=== PATIENT | female | born 1950 | race Two or more races ===

== ENCOUNTER 2017-11-09 06:14 | Day surgery (SDC) | payer MEDICARE, OTHER ==
[~2017-11-09 06:14] MED LIST: KETOROLAC TROMETHAMINE 0.45% 4 DROP/0.4 ML DROPERETTE OD PRN
[2017-11-09] MEDS: TROPICAMIDE 1% OPH SOLN 3 ML OD PRN ×3 (06:44→07:18)
[2017-11-09] MEDS: CYCLOPENTOLATE 0.2%/PHENYLEPHRINE 1% OPH SOLN 2 ML OD PRN ×3 (06:44→07:18)
[2017-11-09] MEDS: BESIFLOXACIN HCL 0.6% OPH SUSP 5 ML BOTTLE OD PRN ×3 (06:45→08:02)
[2017-11-09] MEDS: TETRACAINE HCL 0.5% OPH SOLN 2 ML OD PRN ×3 (06:46→07:33)
[2017-11-09] MEDS ORDERED: EPINEPHRINE INJ/PF 1 MG/1 ML AMPULE ONE (07:12)
[2017-11-09] MEDS ORDERED: LIDOCAINE 1% INJ-PF (10 MG/ML) 30 ML SDV ONE (07:13)
[2017-11-09] MEDS ORDERED: CHONDR SU A NA/HYALUR INTRAOC KIT (SURGICARE) ONE (07:13)
[2017-11-09] MEDS ORDERED: MIDAZOLAM 2 MG/2 ML INJ ONE (07:19)
[2017-11-09] MEDS ORDERED: FENTANYL CITRATE INJ/PF 100 MCG/2 ML AMPUL ONE (07:19)
--- NOTE | 2017-11-09 14:14 | [facility] OPERATIVE REPORT E ---
[facility] Operative Report NAME: CHLOE DEAN AGE: 67Y DATE OF SURGERY: 11/09/2017 ROOM: PREOPERATIVE DIAGNOSES: 1. CATARACT, RIGHT EYE. 2. PUPIL MIOSIS OF THE RIGHT EYE. POSTOPERATIVE DIAGNOSES: 1. CATARACT, RIGHT EYE. 2. PUPIL MIOSIS OF THE RIGHT EYE. OPERATION: Complex cataract extraction with use of a Malyugin ring due to poor pupillary dilation. SURGEON: YUE CAIN M.D. ANESTHESIA: Topical. PROCEDURE: After obtaining appropriate consent, the patient's right eye was prepped and draped in sterile fashion as well as the surgeon in a sterile manner and cataract surgery was started. First a paracentesis blade was used to make a small side-port incision. Viscoelastic was used to inflate the anterior chamber. Next a 2.4 mm incision was made with the paracentesis blade. A continuous capsulorrhexis incision was made using a cystotome and Utrata forceps. Following this hydrodissection was carried out to make the lens fully loose and mobile and it was rotated 90 degrees. Following this, a [id number] technique was used to phacoemulsify the lens with a CDE of 13.14. The remaining cortex was removed with irrigation/aspiration. Provisc was instilled into the capsular bag to inflate the bag. A SN60WF, 19.0 diopter lens was placed. The remaining viscoelastic material was removed with irrigation/aspiration. Following this, a 10-0 nylon suture was used to close the incision and it was found to be watertight. Vigamox was instilled in the eye and a protective shield was placed over the eye. The patient returned to the postoperative recovery in stable condition. DICTATING PHYSICIAN: YUE CAIN M.D. [id number] PHY#: [id number] ID: [id number] JOB#: [id number] ACCT: [id number] cc:YUE CAIN M.D. >
--- NOTE | 2017-11-09 14:15 | [facility] DISCHARGE SUMMARY E ---
[facility] Discharge Summary NAME: CHLOE DEAN AGE: 67Y ADMITTED: 11/09/2017 DISCHARGED: 11/09/2017 DIAGNOSES: 1. CATARACT, RIGHT EYE. 2. PUPIL MIOSIS OF THE RIGHT EYE. SUMMARY: This is a 67-year-old patient who underwent complex cataract extraction of the right eye with use of a Malyugin ring due to poor pupillary dilation. Patient underwent cataract extraction with IOL because he stopped driving due to decreased vision and unable to see the television. He should be on a regular diet, no bending at the waist, and no heavy lifting. They should use the Besivance, Ilevro and Durezol at 3 p.m. and 8 p.m. and sleep with a rigid shield. I will see him for a 1 day postoperative tomorrow. DICTATING PHYSICIAN: YUE CAIN M.D. [id number] PHY#: [id number] ID: [id number] JOB#: [id number] ACCT: [id number] cc:YUE CAIN M.D. >
--- NOTE | 2017-11-09 15:49 | [facility] OPERATIVE REPORT E ---
[facility] Operative Report NAME: CHLOE DEAN AGE: 67Y DATE OF SURGERY: 11/09/2017 ROOM: ADDENDUM: Prior to making the capsulorrhexis a Malyugin ring was inserted due to poor pupillary dilation. This was removed at the end of the case. DICTATING PHYSICIAN: YUE CAIN M.D. [id number] PHY#: [id number] ID: [id number] JOB#: [id number] ACCT: [id number] cc:YUE CAIN M.D. >
== END 2017-11-09 08:53 | disposition home or self-care (01) ==
LOC: SC 06:14
PROVIDERS: ATTEND Internal Medicine
PROC: 08RJ3JZ Replacement of Right Lens with Synthetic Substitute, Percutaneous Approach (ICD-10-PCS; principal; 2017-11-09 07:30)
DX: H25.813 Combined forms of age-related cataract, bilateral (principal); H57.03 Miosis; H20.12 Chronic iridocyclitis, left eye; E11.9 Type 2 diabetes mellitus without complications; I10 Essential (primary) hypertension; F17.210 Nicotine dependence, cigarettes, uncomplicated; Z79.84 Long term (current) use of oral hypoglycemic drugs; Z79.899 Other long term (current) drug therapy; Z79.51 Long term (current) use of inhaled steroids
CPT/HCPCS: 66982; 82962; V2632; J2250; J3490 ×2; A9270; J0171; J3010; 142

== ENCOUNTER → 2018-03-07 | Outpatient (CLI) | payer MEDICARE, OTHER ==
--- NOTE | 2018-03-07 16:38 | RADIOLOGY REPORT (SQ) ---
EXAM DESCRIPTION: BONE SURVEY COMPLETE COMPLETED DATE/TIME: 03/07/2018 3:22 pm REASON FOR STUDY: D47.2 MONOCLONAL GAMMOPATHY D47.2 MONOCLONAL GAMMOPATHY COMPARISON: None. TECHNIQUE: Images of the axial and proximal appendicular skeleton are obtained, along with lateral s kull and frontal chest films. LIMITATIONS: None. FINDINGS: AP CHEST: No bony findings. Lungs are clear. LATERAL SKULL: No worrisome bone lesions. AP BOTH HUMERI: There are diffuse lytic appearing lesions throughout the left humerus. These changes appear to extend into the proximal ulna and radius on the left. TWO-VIEW LUMBAR SPINE: There is approximately 25-50% compression of the L2 vertebra without definite evidence for a pathologic compression TWO-VIEW THORACIC SPINE: There is approximately 50 to 75 percent compression of 1 of the midthoracic vertebra in anterior wedging of a 2nd midthoracic thoracic vertebra without definite evidence for a p athologic compression. AP PELVIS: No worrisome bone lesions. AP BOTH FEMURS: No worrisome bone lesions. OTHER: I cannot exclude lytic areas involving the proximal tibia bilaterally right greater than left IMPRESSION: Diffuse lytic appearing lesions throughout the left humerus and the visualized portions of the proximal ulna and radius on the left. I cannot exclude lytic areas involving the proximal tib ia bilaterally right greater than left. Multiple vertebral compressions as noted above without defin ite associated lytic areas to confirm a a pathologic compression. Clinical correlation is recommende d. Other findings as noted above TECHNICAL DOCUMENTATION: JOB ID: [id number] [employer]- All Rights Reserved Reading location - IP/workstation name: [email or web address]
== END ==
LOC: RAD 15:11
PROVIDERS: ATTEND Internal Medicine
DX: D47.2 Monoclonal gammopathy (principal)
CPT/HCPCS: 77075

== ENCOUNTER 2018-05-27 13:19 | Emergency (ER) | payer MEDICARE, OTHER ==
--- NOTE | 2018-05-27 14:16 | ER Document Report ---
ED Medical Screen (RME) - General Chief Complaint: High Blood Pressure Stated Complaint: ELEVATED BLOOD PRESSURE/ARMS NUMB Time Seen by Provider: 05/27/18 14:06 Notes: 68-year-old female patient with multiple myeloma. Home health today found that she had elevated blood pressure 190/100. She also complains about her hands and feet feeling numb for 3 days. She takes 40 mg of methylprednisolone every Wednesday and she took it this morning. She thinks her blood pressure goes up because of the high dose of methylprednisolone. I have greeted and performed a rapid initial assessment of this patient. A comprehensive ED assessment and evaluation of the patient, analysis of test results and completion of the medical decision making process will be conducted by additional ED providers. TRAVEL OUTSIDE OF THE [place] IN LAST 30 DAYS: No - Related Data Allergies/Adverse Reactions: No Known Allergies Allergy (Unverified 11/04/17 12:46) Past Medical History - Past Medical History Cardiac Medical History: Reports: Hx Hypertension - MEDICATED Denies: Hx Heart Attack Pulmonary Medical History: Denies: Hx Asthma Neurological Medical History: Denies: Hx Cerebrovascular Accident, Hx Seizures GI Medical History: Denies: Hx Hepatitis, Hx Hiatal Hernia, Hx Ulcer Infectious Medical History: Denies: Hx Hepatitis Past Surgical History: Denies: Hx Hysterectomy, Hx Mastectomy, Hx Open Heart Surgery, Hx Pacemaker Physical Exam - Vital signs Vitals: Temp Pulse Resp BP Pulse Ox 98.6 F 82 16 159/78 H 96 05/27/18 13:40 05/27/18 13:40 05/27/18 13:40 05/27/18 13:40 05/27/18 13:40 Course - Vital Signs Vital signs: Temp Pulse Resp BP Pulse Ox 98.6 F 82 16 159/78 H 96 05/27/18 13:40 05/27/18 13:40 05/27/18 13:40 05/27/18 13:40 05/27/18 13:40 Doctor's Discharge - Discharge Referrals: SHARMILA LAUREN MD [Primary Care Provider] - Follow up as needed
[2018-05-27 14:41] LABS: ABSOLUTE LYMPHOCYTES (AUTO) 0.4 10^3/uL (0.5-4.7); ABSOLUTE MONOCYTES (AUTO) 0.1 10^3/uL (0.1-1.4); BASOPHILS % (AUTO) 0.4 % (0-2); EOSINOPHILS % (AUTO) 0.4 % (0-6); HEMATOCRIT 35.8 % (36.0-47.0); HEMOGLOBIN 12.2 g/dL (12.0-15.5); LYMPHOCYTES % (AUTO) 6.8 % (13-45); MEAN CORPUSCULAR HEMOGLOBIN 28.3 pg (27.0-33.4); MEAN CORPUSCULAR HGB CONC 34.1 g/dL (32.0-36.0); MEAN CORPUSCULAR VOLUME 83 fl (80-97); MONOCYTES % (AUTO) 1.4 % (3-13); PLATELET COUNT 209 10^3/uL (150-450); RED BLOOD COUNT 4.31 10^6/uL (3.72-5.28); TOTAL CELLS COUNTED % (AUTO) 100 %; WHITE BLOOD COUNT 5.5 10^3/uL (4.0-10.5)
[2018-05-27 15:04] LABS: ALANINE AMINOTRANSFERASE 18 U/L (9-52); ALBUMIN 3.9 g/dL (3.5-5.0); ALKALINE PHOSPHATASE 97 U/L (38-126); ANION GAP 9 (5-19); ASPARTATE AMINO TRANSFERASE 12 U/L (14-36); BILIRUBIN,DIRECT 0.4 mg/dL (0.0-0.4); BILIRUBIN,TOTAL 0.7 mg/dL (0.2-1.3); BLOOD UREA NITROGEN 10 mg/dL (7-20); CALCIUM 8.9 mg/dL (8.4-10.2); CARBON DIOXIDE 24 mmol/L (22-30); CHLORIDE 101 mmol/L (98-107); CREATINE KINASE 31 U/L (30-135); GLUCOSE 182 mg/dL (75-110); POTASSIUM 4.5 mmol/L (3.6-5.0); SODIUM 133.9 mmol/L (137-145); TOTAL PROTEIN 6.5 g/dL (6.3-8.2)
[2018-05-27 15:27] LABS: APPEARANCE,URINE CLEAR; BILIRUBIN,URINE NEGATIVE (NEGATIVE); COLOR,URINE YELLOW; GLUCOSE, URINE 50 mg/dL (NEGATIVE); KETONES,URINE NEGATIVE (NEGATIVE); LEUKOCYTE ESTERASE,URINE NEGATIVE (NEGATIVE); NITRITE,URINE NEGATIVE (NEGATIVE); PROTEIN,URINE 100 mg/dL (NEGATIVE); URINE SPECIFIC GRAVITY 1.013; UROBILINOGEN,URINE NEGATIVE mg/dL (<2.0)
--- NOTE | 2018-05-27 15:32 | ER Document Report ---
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 Patient has been on steroids for the past 2 months. She states for the past several days she has been having tingling and numbness in the hands and feet in a stocking glove distribution. Patient's home health nurse came in and noticed that the patient's blood pressure was elevated this morning (190/100) and she was referred to the emergency room. Review of systems: Patient denies any neck pain, back pain. She denies any radicular type symptoms. Medicines: Janumet twice daily Lisinopril 40 daily Aspirin 81 mg daily Lipitor 40 mg daily Carvedilol 25 mg twice daily Advair, albuterol and iron Primary CARE doctor: Dr. Frankel. Oncologist: Dr. Дмитрий villarreal Edges: None TRAVEL OUTSIDE OF THE [place] IN LAST 30 DAYS: No - HPI Onset: Last week Onset/Duration: Gradual Quality of pain: No pain Severity: None Pain Level: Denies Associated symptoms: denies: Chest pain, Shortness of breath Exacerbated by: Denies Relieved by: Denies Similar symptoms previously: Yes Recently seen / treated by doctor: Yes - Related Data Allergies/Adverse Reactions: No Known Allergies Allergy (Unverified 11/04/17 12:46) Past Medical History - General Information source: Patient - Social History Smoking Status: Current Every Day Smoker Cigarette use (# per day): Yes - 1 pack/day Chew tobacco use (# tins/day): No Frequency of alcohol use: None Drug Abuse: None Lives with: Family Family History: None Patient has suicidal ideation: No Patient has homicidal ideation: No - Past Medical History Cardiac Medical History: Reports: Hx Hypercholesterolemia, Hx Hypertension - MEDICATED Denies: Hx Heart Attack Pulmonary Medical History: Reports: Hx COPD Denies: Hx Asthma Neurological Medical History: Denies: Hx Cerebrovascular Accident, Hx Seizures Endocrine Medical History: Reports: Hx Diabetes Mellitus Type 2 Renal/ Medical History: Denies: Hx Peritoneal Dialysis GI Medical History: Denies: Hx Hepatitis, Hx Hiatal Hernia, Hx Ulcer Infectious Medical History: Denies: Hx Hepatitis Past Surgical History: Reports: Other - Eye surgery. Denies: Hx Hysterectomy, Hx Mastectomy, Hx Open Heart Surgery, Hx Pacemaker Review of Systems - Review of Systems Constitutional: denies: Chills, Fever EENT: No symptoms reported Cardiovascular: No symptoms reported Respiratory: No symptoms reported Gastrointestinal: No symptoms reported Genitourinary: No symptoms reported Female Genitourinary: No symptoms reported Musculoskeletal: See HPI Skin: No symptoms reported Hematologic/Lymphatic: No symptoms reported Neurological/Psychological: See HPI Physical Exam - Vital signs Vitals: Temp Pulse Resp BP Pulse Ox 98.6 F 82 16 159/78 H 96 05/27/18 13:40 05/27/18 13:40 05/27/18 13:40 05/27/18 13:40 05/27/18 13:40 Notes: Physical exam: GENERAL: She is alert and oriented x3, her blood pressure is 137/67 at the time of my exam, her pulse is 75, O2 sat 99% on room air. She does have an intermittent nonproductive cough which he says is chronic for her HEAD: Atraumatic, normocephalic. EYES: Pupils equal round and reactive to light, extraocular movements intact, sclera anicteric, conjunctiva are normal. ENT: TMs normal, nares patent, oropharynx clear without exudates. Moist mucous membranes. NECK: Normal range of motion, supple without obvious mass or JVD. LUNGS: Scattered wheezing which clears HEART: Regular rate and rhythm without murmurs, rubs or gallops. ABDOMEN: Soft, normoactive bowel sounds. No tenderness to palpation. No guarding, no rebound. No masses appreciated. EXTREMITIES: Normal range of motion, no pitting or edema. No clubbing or cyanosis. NEUROLOGICAL: Cranial nerves II through XII grossly intact. Normal speech, moving all extremities. Motor 5/5. Patient does have subjective tingling in the stocking glove distribution bilaterally upper and lower. There is no focal weakness. PSYCH: Normal mood, normal affect. SKIN: Warm, Dry, normal turgor, no rashes or lesions noted. Course - Re-evaluation Re-evalutation: 05/27/18 18:37 Did discuss the case with Dr. Pruitt who did recommend getting a T and L CT to rule out any obvious lesions. None were seen. Patient was given some IV fluids. The plan will be to decrease the weekly steroids (Decadron) in half. Dr. Baez recommended the patient call the clinic on Wednesday to be seen next week. - Vital Signs Vital signs: Temp Pulse Resp BP Pulse Ox 97.4 F 71 16 146/76 H 98 05/27/18 19:01 05/27/18 19:01 05/27/18 19:01 05/27/18 19:01 05/27/18 19:01 - Laboratory Result Diagrams: 05/27/18 13:22 05/27/18 13:22 Laboratory results interpreted by me: 05/27/18 05/27/18 05/27/18 13:22 13:22 14:40 Hct 35.8 L RDW 18.0 H Seg Neutrophils % 91.0 H Lymphocytes % 6.8 L Monocytes % 1.4 L Absolute Lymphocytes 0.4 L Sodium 133.9 L Glucose 182 H POC Glucose AST 12 L Urine Protein 100 H Urine Glucose (UA) 50 H 05/27/18 14:49 Hct RDW Seg Neutrophils % Lymphocytes % Monocytes % Absolute Lymphocytes Sodium Glucose POC Glucose 204 H AST Urine Protein Urine Glucose (UA) Discharge - Discharge Clinical Impression: Peripheral neuropathy Disposition: HOME, SELF-CARE Instructions: Neuropathy ([facility]) Additional Instructions: As we discussed, your kidney function tests and electrolytes look quite good. Your urine test was clean. Your chest x-ray was clear. CT of the back look quite good. There were some chronic changes and mild compression (which was old ) of L2. I did discuss the results with Dr. Baez. We do want you to decrease the weekly steroids in half (to 20 mg of Decadron). Call Dr. Baez's office on Wednesday to be seen next week. Referrals: SHARMILA BAEZ MD [ACTIVE STAFF] - 05/30/18
--- NOTE | 2018-05-27 16:25 | RADIOLOGY REPORT (SQ) ---
EXAM DESCRIPTION: CHEST 2 VIEWS COMPLETED DATE/TIME: 05/27/2018 4:06 pm REASON FOR STUDY: cough COMPARISON: Skeletal survey 03/07/2018 AP chest 06/20/2010, 06/19/2010 EXAM PARAMETERS: NUMBER OF VIEWS: two views TECHNIQUE: Digital Frontal and Lateral radiographic views of the chest acquired. RADIATION DOSE: NA LIMITATIONS: none FINDINGS: LUNGS AND PLEURA: No opacities, masses or pneumothorax. No pleural effusion. MEDIASTINUM AND HILAR STRUCTURES: No masses or contour abnormalities. HEART AND VASCULAR STRUCTURES: Heart normal size. No evidence for failure. BONES: Osteoporotic. Stable 50% compression deformities in the upper thoracic spine. Advanced degen erative changes left shoulder. Old anterior left 5th rib fracture, old anterior right 5th rib fractu re HARDWARE: None in the chest. OTHER: No other significant finding. IMPRESSION: No acute findings TECHNICAL DOCUMENTATION: JOB ID: [id number] [employer]- All Rights Reserved Reading location - IP/workstation name: [email or web address]
[2018-05-27] MEDS ORDERED: NORMAL SALINE 500 ML IV ONE (17:10)
--- NOTE | 2018-05-27 17:38 | RADIOLOGY REPORT (SQ) ---
EXAM DESCRIPTION: CT LUMBAR SPINE WITHOUT COMPLETED DATE/TIME: 05/27/2018 5:25 pm REASON FOR STUDY: back pain, multiple myeloma COMPARISON: Bone survey 03/07/2018 TECHNIQUE: Axial images acquired through the lumbar spine without intravenous contrast. Images revi ewed with lung, soft tissue and bone windows. Reconstructed coronal and sagittal MPR images reviewed . All images stored on PACS. All CT scanners at this facility use dose modulation, iterative reconstruction, and/or weight based d osing when appropriate to reduce radiation dose to as low as reasonably achievable (ALARA). [facility]: Dose Right [facility]: CareDose [facility]: Dose Right [facility]: Teradose 4D [facility]: [employer] RADIATION DOSE: mGy. LIMITATIONS: None. FINDINGS: SEGMENTATION: Normal. No transitional anatomy. ALIGNMENT: Normal. VERTEBRAL BODIES: Old compression changes are present at L2. Bridging osteophytes are present in the lower thoracic and upper lumbar spine. DISCS: No significant protrusions. Study limited by lack of intrathecal contrast. PEDICLES, TRANSVERSE PROCESSES: No fractures. No dislocation. No acute findings. FACETS, POSTERIOR ELEMENTS: No fractures. No dislocation. No spinal stenosis. HARDWARE: None in the spine. VISUALIZED RIBS: No fractures. SOFT TISSUES: No significant or acute finding in adjacent soft tissues. OTHER: No other significant finding. IMPRESSION: Lumbar spondylosis. Old compression changes at L2. No acute findings. TECHNICAL DOCUMENTATION: JOB ID: [id number] Quality ID # [id number]: Final reports with documentation of one or more dose reduction techniques (e.g., Au tomated exposure control, adjustment of the mA and/or kV according to patient size, use of iterative reconstruction technique) 2010 [employer]- All Rights Reserved Reading location - IP/workstation name: [email or web address]
--- NOTE | 2018-05-27 17:47 | RADIOLOGY REPORT (SQ) ---
EXAM DESCRIPTION: CT THORACIC SPINE WITHOUT COMPLETED DATE/TIME: 05/27/2018 5:25 pm REASON FOR STUDY: back pain, multiple myeloma COMPARISON: None. TECHNIQUE: Axial images acquired through the thoracic spine without intravenous contrast. Images re viewed with lung, soft tissue and bone windows. Reconstructed coronal and sagittal MPR images review ed. Images stored on PACS. All CT scanners at this facility use dose modulation, iterative reconstruction, and/or weight based d osing when appropriate to reduce radiation dose to as low as reasonably achievable (ALARA). [facility]: Dose Right [facility]: CareDose [facility]: Dose Right [facility]: Teradose 4D [facility]: Smart [employer] RADIATION DOSE: CT Rad equipment meets quality standard of care and radiation dose reduction techniq ues were employed. CTDIvol: 34.5 mGy. DLP: 981 mGy-cm. mGy. LIMITATIONS: None. FINDINGS: VISUALIZED LUNGS: No acute opacities. No pneumothorax. SOFT TISSUES: No soft tissue swelling. No masses. VERTEBRAL BODIES: Compression changes are present in the upper to mid thoracic spine. There is somew hat heterogeneous mineralization all the bone suggestive of osteopenia. No definite discrete lytic l esions are appreciated. DISCS: No significant disc space narrowing. ALIGNMENT: Mild dextroscoliosis. TRANSVERSE PROCESSES, POSTERIOR ELEMENTS: No fractures. No dislocation. No acute findings. HARDWARE: None in the spine. VISUALIZED RIBS: No fractures. OTHER: No other significant finding. IMPRESSION: Heterogeneous mineralization of the vertebrae. No definite lytic lesions are seen, but small lesions cannot entirely be excluded. Compression changes in the upper and midthoracic spine. COMMENT: The same considerations apply to the lumbar spine. There is slightly heterogeneous mineral ization. Small myelomatous lesions cannot entirely be excluded. TECHNICAL DOCUMENTATION: JOB ID: [id number] Quality ID # [id number]: Final reports with documentation of one or more dose reduction techniques (e.g., Au tomated exposure control, adjustment of the mA and/or kV according to patient size, use of iterative reconstruction technique) 2010 [employer]- All Rights Reserved Reading location - IP/workstation name: [email or web address]
[2018-05-27 19:02] VITALS: BP 146/76
== END 2018-05-27 18:55 | disposition home or self-care (01) ==
LOC: ER 13:19
DX: E11.42 Type 2 diabetes mellitus with diabetic polyneuropathy (principal); R20.2 Paresthesia of skin; R20.0 Anesthesia of skin; R05 Cough; E78.00 Pure hypercholesterolemia, unspecified; I10 Essential (primary) hypertension; J44.9 Chronic obstructive pulmonary disease, unspecified; F17.210 Nicotine dependence, cigarettes, uncomplicated; Z79.84 Long term (current) use of oral hypoglycemic drugs; Z79.899 Other long term (current) drug therapy; Z79.82 Long term (current) use of aspirin; Z79.51 Long term (current) use of inhaled steroids
CPT/HCPCS: 99284; 96360; 36415; 87040; 82962; 82550; 85025; 80053; 81001; 71046; 72128; 72131; J7040

== ENCOUNTER 2018-10-07 13:12 | Outpatient (CLI) | payer MEDICARE, OTHER ==
[~2018-10-07 13:12] MED LIST changes: +CALCIUM GLUCONATE 2,000 MG in DEXTROSE 5%-WATER 100 ML IV PRN; -KETOROLAC TROMETHAMINE 0.45% 4 DROP/0.4 ML DROPERETTE OD PRN; +NORMAL SALINE 250 ML IV PRN
[2018-10-07 13:40] VITALS: BP 141/61
== END 2018-10-07 16:28 | disposition home or self-care (01) ==
LOC: II 13:12 → 5TH 13:24 → II 16:28
PROVIDERS: ATTEND Internal Medicine Hematology & Oncology
PROC: 3E033GC Introduction of Other Therapeutic Substance into Peripheral Vein, Percutaneous Approach (ICD-10-PCS; principal; 2018-10-07)
DX: E83.51 Hypocalcemia (principal)
CPT/HCPCS: 96367; J0610; 96365

== ENCOUNTER 2020-06-03 18:47 | Inpatient (IN) | payer MEDICARE ==
--- NOTE | 2020-06-03 19:48 | ER Document Report ---
ED Medical Screen (RME) - General Chief Complaint: Weakness Stated Complaint: LEG WEAKNESS Time Seen by Provider: 06/03/20 19:46 Mode of Arrival: Wheelchair Information source: Patient Notes: HPI; 70-year-old female presents to the emergency room complaining of general weakness with frequent falls over the past 2 days. States her son has had to lift her up multiple times today. States she is had a decreased appetite plus her house is hot because her air conditioning went out 2 days ago. She denies any head trauma head injury. Denies any use of blood thinners. She denies any nausea, vomiting, no diarrhea. PE: Alert and oriented x3. Mild distress noted. Lungs: Clear to auscultation without rales, rhonchi, wheezes. Heart: Regular rate rhythm without murmurs, rubs, gallops. I have greeted and performed a rapid initial assessment of this patient. A comprehensive ED assessment and evaluation of the patient, analysis of test results and completion of the medical decision making process will be conducted by additional ED providers. I have specifically instructed the patient or family members with the patient to immediately return to any nursing staff should anything change in the patient's condition or with their chief complaint. TRAVEL OUTSIDE OF THE [place] IN LAST 30 DAYS: No - Related Data Allergies/Adverse Reactions: No Known Allergies Allergy (Verified 06/03/20 19:40) Past Medical History - Past Medical History Cardiac Medical History: Reports: Hx Hypercholesterolemia, Hx Hypertension - MEDICATED Denies: Hx Heart Attack Pulmonary Medical History: Reports: Hx COPD Denies: Hx Asthma Neurological Medical History: Denies: Hx Cerebrovascular Accident, Hx Seizures Endocrine Medical History: Reports: Hx Diabetes Mellitus Type 2 Renal/ Medical History: Denies: Hx Peritoneal Dialysis GI Medical History: Denies: Hx Hepatitis, Hx Hiatal Hernia, Hx Ulcer Infectious Medical History: Denies: Hx Hepatitis Past Surgical History: Reports: Other - Eye surgery. Denies: Hx Hysterectomy, Hx Mastectomy, Hx Open Heart Surgery, Hx Pacemaker Physical Exam - Vital signs Vitals: Temp Pulse Resp BP Pulse Ox 98.5 F 87 20 153/77 H 94 06/03/20 19:19 06/03/20 19:19 06/03/20 19:19 06/03/20 19:19 06/03/20 19:19 Course - Vital Signs Vital signs: Temp Pulse Resp BP Pulse Ox 98.5 F 87 20 153/77 H 94 06/03/20 19:19 06/03/20 19:19 06/03/20 19:19 06/03/20 19:19 06/03/20 19:19
[2020-06-03 20:50] LABS: APPEARANCE,URINE SLIGHTLY-CLOUDY; BILIRUBIN,URINE NEGATIVE (NEGATIVE); COLOR,URINE YELLOW; GLUCOSE, URINE >=500 mg/dL (NEGATIVE); KETONES,URINE TRACE mg/dL (NEGATIVE); LEUKOCYTE ESTERASE,URINE NEGATIVE (NEGATIVE); NITRITE,URINE NEGATIVE (NEGATIVE); PROTEIN,URINE >=500 mg/dL (NEGATIVE); UROBILINOGEN,URINE NEGATIVE mg/dL (<2.0)
[2020-06-03 20:57] LABS: ABSOLUTE EOSINOPHILS # (AUTO) 0.1 10^3/uL (0.0-0.6); ABSOLUTE LYMPHOCYTES (AUTO) 1.5 10^3/uL (0.5-4.7); ABSOLUTE MONOCYTES (AUTO) 0.5 10^3/uL (0.1-1.4); ABSOLUTE NEUT (AUTO) 6.6 10^3/uL (1.7-8.2); BASOPHILS % (AUTO) 0.3 % (0-2); EOSINOPHILS % (AUTO) 1.5 % (0-6); HEMATOCRIT 44.1 % (36.0-47.0); HEMOGLOBIN 15.3 g/dL (12.0-15.5); LYMPHOCYTES % (AUTO) 17.3 % (13-45); MEAN CORPUSCULAR HEMOGLOBIN 31.1 pg (27.0-33.4); MEAN CORPUSCULAR HGB CONC 34.8 g/dL (32.0-36.0); MEAN CORPUSCULAR VOLUME 89 fl (80-97); MONOCYTES % (AUTO) 5.9 % (3-13); PLATELET COUNT 227 10^3/uL (150-450); RED BLOOD COUNT 4.93 10^6/uL (3.72-5.28); RED CELL DISTRIBUTION WIDTH 13.2 % (11.5-14.0); TOTAL CELLS COUNTED % (AUTO) 100 %; WHITE BLOOD COUNT 8.7 10^3/uL (4.0-10.5)
[2020-06-03 21:00] LABS: ALBUMIN 4.5 g/dL (3.5-5.0); ALKALINE PHOSPHATASE 121 U/L (38-126); ANION GAP 15 (5-19); ASPARTATE AMINO TRANSFERASE 20 U/L (14-36); BILIRUBIN,DIRECT 0.3 mg/dL (0.0-0.4); BILIRUBIN,TOTAL 1.1 mg/dL (0.2-1.3); BLOOD UREA NITROGEN 13 mg/dL (7-20); CALCIUM 9.7 mg/dL (8.4-10.2); CARBON DIOXIDE 20 mmol/L (22-30); CHLORIDE 99 mmol/L (98-107); GLUCOSE 271 mg/dL (75-110); POTASSIUM 4.1 mmol/L (3.6-5.0); TOTAL PROTEIN 7.7 g/dL (6.3-8.2)
[2020-06-04] MEDS ORDERED: NORMAL SALINE 1000 ML 1,000 ML IV ONE (01:24)
[2020-06-04] MEDS ORDERED: IPRATROPIUM/ALBUTEROL 0.5-2.5 MG/3 ML AMPUL NEB ONE (01:35)
--- NOTE | 2020-06-04 01:35 | ER Document Report ---
ED General - General Chief Complaint: General Weakness Stated Complaint: LEG WEAKNESS Time Seen by Provider: 06/03/20 19:46 Mode of Arrival: Wheelchair Notes: Patient is a 70 year old female that comes to the emergency department for chief complaint of generalized weakness. Patient states that since yesterday midday s he has felt weaker than usual and as result she has fallen 3 times. She denies any heavy falls, head injury, or areas of pain after falling. She states that the weakness has continued since yesterday and has not improved or changed. When asked where her weakness is mainly she states "my legs". She denies headache, chest pain, dizziness, nausea, vomiting. She states she feels dehydrated. She has a past medical history of multiple myeloma on Revlimid (follows with Dr. Baez), hypertension, hyperlipidemia, COPD, current smoking. Granddaughter at bedside. TRAVEL OUTSIDE OF THE [place] IN LAST 30 DAYS: No - Related Data Allergies/Adverse Reactions: No Known Allergies Allergy (Verified 06/03/20 19:40) Past Medical History - General Information source: Patient - Social History Smoking Status: Current Every Day Smoker Frequency of alcohol use: None Drug Abuse: None Lives with: Family Family History: None - Past Medical History Cardiac Medical History: Reports: Hx Hypercholesterolemia, Hx Hypertension - MEDICATED Denies: Hx Heart Attack Pulmonary Medical History: Reports: Hx COPD Denies: Hx Asthma Neurological Medical History: Denies: Hx Cerebrovascular Accident, Hx Seizures Endocrine Medical History: Reports: Hx Diabetes Mellitus Type 2 Renal/ Medical History: Denies: Hx Peritoneal Dialysis GI Medical History: Denies: Hx Hepatitis, Hx Hiatal Hernia, Hx Ulcer Infectious Medical History: Denies: Hx Hepatitis Past Surgical History: Reports: Other - Eye surgery. Denies: Hx Hysterectomy, Hx Mastectomy, Hx Open Heart Surgery, Hx Pacemaker Review of Systems - Review of Systems Constitutional: No symptoms reported EENT: No symptoms reported Cardiovascular: No symptoms reported Respiratory: No symptoms reported Gastrointestinal: No symptoms reported Genitourinary: No symptoms reported Female Genitourinary: No symptoms reported Musculoskeletal: See HPI Skin: No symptoms reported Hematologic/Lymphatic: No symptoms reported Neurological/Psychological: See HPI Physical Exam - Vital signs Vitals: Temp Pulse Resp BP Pulse Ox 98.5 F 87 20 153/77 H 94 06/03/20 19:19 06/03/20 19:19 06/03/20 19:19 06/03/20 19:19 06/03/20 19:19 - Notes Notes: GENERAL: Alert, interacts well. No acute distress. HEAD: Normocephalic, atraumatic. EYES: Pupils equal, round, and reactive to light. Extraocular movements intact. ENT: Oral mucosa moist, tongue midline. Oropharynx unremarkable. Airway patent. NECK: Full range of motion. Supple. Trachea midline. No lymphadenopathy. LUNGS: Clear to auscultation bilaterally, no wheezes, rales, or rhonchi. No r espiratory distress. Non-tender chest wall. HEART: Regular rate and rhythm. No murmur ABDOMEN: Soft, non-tender. Non-distended. Bowel sounds present in all 4 quadrants. GENITOURINARY: Deferred EXTREMITIES: No signs of trauma, no tenderness noted. No edema, normal radial and dorsalis pedis pulses bilaterally. No cyanosis. BACK: no cervical, thoracic, lumbar midline tenderness. No saddle anesthesia, normal distal neurovascular exam. NEUROLOGICAL: Alert and oriented x3. Normal speech. Normal zzyzej-by-slqu testing, normal Romberg. Cranial nerves II through XII grossly intact. There is marked decrease in strength in the left leg and patient is unable to lift his leg in any meaningful fashion against gravity. Extremities otherwise unremarkable. SKIN: Warm, dry, normal turgor. No rashes or lesions noted. Course - Re-evaluation Re-evalutation: Patient's physical exam is concerning for CVA with marked left leg weakness, possible ARIANNA distribution. Remaining evaluation is unremarkable. Patient has had several falls, most likely from this weakness based on her evaluation. Vital signs show mild hypertension, this will be allowed for permissive hypertension in the setting of likely CVA. CBC nonspecific, chemistry shows hyperglycemia without acidosis, urinalysis shows elevated specific gravity. Chest x-ray and CAT scan without acute findings. EKG nonspecific. Giving aspirin, patient has been given IV fluids fo r dehydration as well. I discussed with daughter and patient, recommendation is admission for suspected CVA, patient also might need rehab because she has difficulty with ambulation. I discussed with Dr. Coelho, patient excepted to IMCU full admission. - Vital Signs Vital signs: Temp Pulse Resp BP Pulse Ox 98.5 F 87 20 153/77 H 94 06/03/20 19:19 06/03/20 19:19 06/03/20 19:19 06/03/20 19:19 06/03/20 19:19 - Laboratory Result Diagrams: 06/03/20 20:15 06/03/20 20:15 Laboratory results interpreted by me: 06/03/20 06/03/20 20:15 20:15 Sodium 134.4 L Carbon Dioxide 20 L Glucose 271 H Urine Protein >=500 H Urine Glucose (UA) >=500 H Urine Ketones TRACE H - EKG Interpretation by Me Additional EKG results interpreted by me: EKG shows sinus rhythm at a rate of 83, normal axis, no T wave inversions or ST segment changes in consecutive leads. QTc is borderline prolonged at 489. Discharge - Discharge Clinical Impression: Left leg weakness Fall Qualifiers: Encounter type: initial encounter Qualified Code(s): W19.XXXA - Unspecified fall, initial encounter Condition: Stable Disposition: ADMITTED INPATIENT Admitting Provider: Laquita (Hospitalist) Unit Admitted: [facility]
--- NOTE | 2020-06-04 02:00 | RADIOLOGY REPORT (SQ) ---
EXAM DESCRIPTION: X-ray, single view of the chest CLINICAL HISTORY: 70 years Female, left leg weakness COMPARISON: Two views of the chest May 27, 2018 FINDINGS: Lungs: Lungs are clear. No pneumonia or edema. No pneumothorax or pleural effusion. Mediastinum: Cardiac and mediastinal silhouette are unchanged Bones: Osseous structures are not well seen secondary to underpenetration. There may be healed left-sided rib fractures. IMPRESSION: No acute process. No pneumonia or edema.
[2020-06-04 02:53] LABS: INTERNATIONAL RATION (INR) 0.96
[2020-06-04 02:54] LABS: PARTIAL THROMBOPLASTIN TIME 27.1 SEC (23.5-35.8)
--- NOTE | 2020-06-04 03:11 | RADIOLOGY REPORT (SQ) ---
CLINICAL HISTORY: left leg weakness COMPARISON: None. TECHNIQUE: CT HEAD WITHOUT IV CONTRAST on 06/04/2020 1:23 AM CDT This exam was performed according to our departmental dose-optimization program, which includes automated exposure control, adjustment of the mA and/or kV according to patient size and/or use of iterative reconstruction technique. FINDINGS: There is no acute hemorrhage, mass effect or midline shift. Zhang-white differentiation is preserved. There is no hydrocephalus. There is no significant volume loss for age. The calvarium is intact. Left globe is hyperdense. The paranasal sinuses are clear. Mastoid air cells are clear. IMPRESSION: No acute intracranial findings.
[2020-06-04] MEDS ORDERED: ASPIRIN 325 MG TABLET PO ONE (03:25)
[2020-06-04] MEDS ORDERED: ACETAMINOPHEN 325 MG TABLET PO PRN (04:15)
[2020-06-04] MEDS ORDERED: ONDANSETRON HCL INJ/PF 4 MG/2 ML SDV IV PRN (04:15)
[2020-06-04] MEDS ORDERED: DEXTROSE 50%-WATER 25 GM/50 ML DISP.SYRIN IV PRN ×2 (04:18)
[2020-06-04] MEDS ORDERED: DEXTROSE 40% GEL 15 GM TUBE PO PRN ×2 (04:18)
[2020-06-04] MEDS ORDERED: GLUCAGON,HUMAN RECOMB 1 MG INJ IM PRN (04:18)
[2020-06-04] MEDS ORDERED: NICOTINE 14 MG/24 HR PATCH.TD24 TD PRN (04:24)
--- NOTE | 2020-06-04 04:47 | PDOC H&P ---
History of Present Illness Admission Date/PCP: 06/04/20 03:49 Patient complains of: Left-sided weakness, ambulatory dysfunction History of Present Illness: CHLOE DEAN is a 70 year old female with history of type 2 diabetes mellitus with retinopathy, multiple myeloma, hypertension, COPD, presents to the hospital for evaluation of left-sided weakness which began 2 days ago. It involve the leg and her arm. Since then, she has been having difficulty getting around to the point where she had a fall. Ambulation has been significantly impacted and her daughter urged her to come into the hospital today. She endorses numbness which is improving in her left arm. Denies any tingling sensation. Denies any slurred speech. Denies any dysphagia. Follows with Dr. Vyas regarding her multiple myeloma and is on Revlimid. Patient denies any prior history of stroke or TIAs. She denies any heart disease. Past Medical History Cardiac Medical History: Reports: Hyperlipidema, Hypertension - MEDICATED Denies: Myocardial Infarction Pulmonary Medical History: Reports: Chronic Obstructive Pulmonary Disease (COPD) Denies: Asthma Neurological Medical History: Denies: Seizures Endocrine Medical History: Reports: Diabetes Mellitus Type 2 GI Medical History: Denies: Hepatitis, Hiatal Hernia Hematology: Denies: Anemia, Sickle Cell Disease Past Surgical History Past Surgical History: Reports: Other - Eye surgery Denies: Amputation, Hysterectomy, Mastectomy, Pacemaker Social History Smoking Status: Current Every Day Smoker Frequency of Alcohol Use: None Hx Recreational Drug Use: No - Advance Directive Resuscitation Status: Full Code Family History Family History: DM, Hypertension Parental Family History Reviewed: Yes Children Family History Reviewed: NA Sibling(s) Family History Reviewed.: Yes Medication/Allergy Home Medications: Albuterol Sulfate [Proventil Hfa] 1 puff IH DAILY 11/04/17 Aspirin [Aspirin EC] 81 mg PO DAILY 11/04/17 Atorvastatin Calcium [Lipitor 40 mg Tablet] 40 mg PO QHS 11/04/17 Besifloxacin HCl [Besivance 0.6% Oph Susp 5 ml] 1 drop OP ASDIR 11/04/17 Difluprednate [Durezol] 1 drop OP ASDIR 11/04/17 Fluticasone/Salmeterol [Advair 100-50 Diskus 28 Dose] 2 inh IH DAILY PRN 11/04/17 Lisinopril 40 mg PO DAILY 11/04/17 Nepafenac [Ilevro] 1 drop OP ASDIR 11/04/17 Sitagliptin Phos/Metformin HCl [Janumet 50-1,000 Mg Tablet] 1 each PO BID 11/04/17 Allergies/Adverse Reactions: No Known Allergies Allergy (Verified 06/03/20 19:40) Review of Systems Constitutional: ABSENT: chills, fever(s) Eyes: PRESENT: visual disturbances - 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 ABSENT: abnormal speech, confusion, dizziness, syncope, tingling, tremor(s), vertigo Psychiatric: PRESENT: depression - Since losing her 2 months ago Endocrine: ABSENT: polyuria Allergic/Immunologic: ABSENT: seasonal rhinorrhea Physical Exam Vital Signs: Temp Pulse Resp BP Pulse Ox 98.5 F 87 20 153/77 H 94 06/03/20 19:19 06/03/20 19:19 06/03/20 19:19 06/03/20 19:19 06/03/20 19:19 Intake & Output 06/02/20 06/03/20 06/04/20 06:59 06:59 06:59 Weight 74.4 kg General appearance: PRESENT: no acute distress, cooperative Eye exam: PRESENT: conjunctival injection, EOMI, PERRLA. ABSENT: scleral icterus Neck exam: ABSENT: JVD Respiratory exam: PRESENT: clear to auscultation mary jo, unlabored. ABSENT: accessory muscle use, tachypnea, wheezes Cardiovascular exam: PRESENT: RRR, +S1, +S2. ABSENT: tachycardia GI/Abdominal exam: PRESENT: soft. ABSENT: rebound, rigid, tenderness Extremities exam: ABSENT: pedal edema Musculoskeletal exam: PRESENT: full ROM. ABSENT: deformity Neurological exam: PRESENT: alert, awake, oriented to person, oriented to place, oriented to time, oriented to situation, CN II-XII grossly intact - Except mild facial pulse, motor sensory deficit - 3/5 in LLE, 4/5LUE, 5/5 in RLE & RUE. ABSENT: ataxia, aphasic Psychiatric exam: ABSENT: agitated, anxious Focused psych exam: ABSENT: pressured speech Skin exam: ABSENT: jaundice Results Laboratory Results: 06/03/20 20:15 06/03/20 20:15 06/03/20 06/03/20 06/03/20 20:15 20:15 20:15 WBC 8.7 RBC 4.93 Hgb 15.3 Hct 44.1 MCV 89 MCH 31.1 MCHC 34.8 RDW 13.2 Plt Count 227 Seg Neutrophils % 75.0 Sodium 134.4 L Potassium 4.1 Chloride 99 Carbon Dioxide 20 L Anion Gap 15 BUN 13 Creatinine 0.80 Est GFR ( Amer) > 60 Glucose 271 H Calcium 9.7 Total Bilirubin 1.1 AST 20 Alkaline Phosphatase 121 Total Protein 7.7 Albumin 4.5 Urine Color YELLOW Urine Appearance SLIGHTLY-CLOUDY Urine pH 5.0 Ur Specific [place] 1.020 Urine Protein >=500 H Urine Glucose (UA) >=500 H Urine Ketones TRACE H Urine Blood NEGATIVE Urine Nitrite NEGATIVE Ur Leukocyte Esterase NEGATIVE Urine WBC (Auto) 3 Urine RBC (Auto) 1 06/03/20 20:15 Troponin I < 0.012 Impressions: Chest X-Ray 06/04/20 01:23 IMPRESSION: No acute process. No pneumonia or edema. Head CT 06/04/20 01:23 IMPRESSION: No acute intracranial findings. Assessment and Plan - Diagnosis (1) Acute CVA (cerebrovascular accident) Is this a current diagnosis for this admission?: Yes Plan: Suspected acute CVA which likely occurred 2 days ago at the time when patient started experiencing left-sided weakness. Brain CT negative for hemorrhagic NIHSS score is 5 Neuro checks Check MRI of the brain, carotid Doppler, echo Cardiac monitoring Daily aspirin, Plavix for 21 days, high-dose atorvastatin Check lipid panel and A1c in the morning Swallow screen PT/OT/social work consultation May need placement of acute rehab given degree of her ambulatory dysfunction Patient educator DVT/GI prophylaxis (2) Multiple myeloma Qualifiers: Multiple myeloma remission status: unspecified Qualified Code(s): C90.00 - Multiple myeloma not having achieved remission Is this a current diagnosis for this admission?: Yes Plan: Outpatient follow-up with hematology/oncology Dr. Lebron. Takes Revlimid (3) Diabetes Qualifiers: Diabetes mellitus type: type 2 Diabetes mellitus [facility] insulin use: without [facility] use Diabetes mellitus complication status: with ophthalmic complications Diabetes mellitus complication detail: with diabetic retinopathy Diabetic retinopathy severity: with unspecified retinopathy severity Diabetes mellitus macular edema: macular edema presence unspecified Laterality: left Qualified Code(s): E11.319 - Type 2 diabetes mellitus with unspecified diabetic retinopathy without macular edema Is this a current diagnosis for this admission?: Yes Plan: On oral anti-glycemic. Sliding scale insulin, Accu-Cheks, check hemoglobin A1c (4) Hypertension Qualifiers: Hypertension type: essential hypertension Qualified Code(s): I10 - Essential (primary) hypertension Is this a current diagnosis for this admission?: Yes Plan: Resume antihypertensives once medication reconciliation is confirmed. If patient is not already on one, patient will benefit strongly from ACEI/ARB given 4+ proteinuria 2/2 diabetes (5) COPD (chronic obstructive pulmonary disease) Qualifiers: COPD type: unspecified COPD Qualified Code(s): J44.9 - Chronic obstructive pulmonary disease, unspecified Is this a current diagnosis for this admission?: Yes Plan: Albuterol as needed. Not in acute exacerbation. (6) Tobacco abuse Is this a current diagnosis for this admission?: Yes Plan: Counseled on smoking cessation. - Time Time Spent with patient: 35 or more minutes Anticipated Discharge Disposition: Acute rehab Anticipated Discharge Timeframe: within 48 hours
[2020-06-04 06:37] LABS: ANION GAP 12 (5-19); BLOOD UREA NITROGEN 12 mg/dL (7-20); CARBON DIOXIDE 20 mmol/L (22-30); CHLORIDE 104 mmol/L (98-107); CHOLESTEROL 241.18 mg/dL (0-200); GLUCOSE 203 mg/dL (75-110); POTASSIUM 3.6 mmol/L (3.6-5.0); TRIGLYCERIDES 223 mg/dL (<150)
[2020-06-04 06:48] LABS: DIRECT LDL 182 mg/dL (<100)
[2020-06-04 06:50] LABS: VLDL CHOLESTEROL 44.6 mg/dL (10-31)
--- NOTE | 2020-06-04 10:14 | RADIOLOGY REPORT (SQ) ---
EXAM DESCRIPTION: MRI HEAD WITHOUT IMAGES COMPLETED DATE/TIME: 06/04/2020 9:42 am REASON FOR STUDY: suspected cva. left sided weakness COMPARISON: None. TECHNIQUE: Multiplanar imaging includes non-contrasted T1, T2, FLAIR, and Diffusion with ADC map seq uences. Images stored on PACS. LIMITATIONS: None. FINDINGS: ANATOMY: No anomalies. Normal vascular flow voids. Pituitary fossa normal. CSF SPACES: Normal in size and contour. No hemorrhage. CEREBRUM: A few high-signal intensity lesions scattered throughout the white matter on FLAIR imaging with distribution suggesting chronic micro-vascular ischemic change. Sulci and gyri normal in size a nd contour. No evidence of hemorrhage, mass or extraaxial fluid collection. POSTERIOR FOSSA: No signal alteration. No hemorrhage. No edema, masses or mass effect. Internal sri tory canals, cerebello-pontine angles, mastoids normal. DIFFUSION: There is an oval area of abnormal signal in the right [place] radiata measuring just over 1 0 mm which is bright on diffusion and dark on ADC map. Much smaller focus of similar abnormal signal in the left temporal lobe cortex. ORBITS: No masses. Globes normal. PARANASAL SINUSES: No fluid levels. Mucosa normal. OTHER: No other significant finding. IMPRESSION: Acute, nonhemorrhagic lacunar infarcts right [place] radiata and left jainism cortex. EVIDENCE OF ACUTE STROKE: YES. Bilateral MCA. COMMENT: The findings were sent to the Radiology Results Communication Center at 10:07 on 0 to be communicated to a licensed caregiver. TECHNICAL DOCUMENTATION: JOB ID: [id number] 2010 [employer]- All Rights Reserved Reading location - IP/workstation name: [email or web address]
--- NOTE | 2020-06-04 10:15 | RADIOLOGY REPORT (SQ) ---
EXAM DESCRIPTION: MRA HEAD WITHOUT IMAGES COMPLETED DATE/TIME: 06/04/2020 9:44 am REASON FOR STUDY: CVA COMPARISON: None. TECHNIQUE: Axial 3-D [id number] acquisition imaging performed through the brain in the area of t he [place]. Images reformatted using 3-D MIPS. LIMITATIONS: Motion. FINDINGS: SOURCE IMAGES: No unexpected findings on source images. No large masses. 3-D MIP: No aneurysm. No occlusions. No significant stenosis. OTHER: No other significant finding. IMPRESSION: NORMAL MRA OF [place]. TECHNICAL DOCUMENTATION: JOB ID: [id number] 2010 [employer]- All Rights Reserved Reading location - IP/workstation name: [email or web address]
[2020-06-04] MEDS: INSULIN LISPRO 100 UNIT/ML 3 ML VIAL SUBCUT SCH ×4 (11:17→22:33)
[2020-06-04] MEDS: ENOXAPARIN SODIUM INJ 40 MG/0.4 ML DISP.SYRIN SUBCUT SCH (11:42)
[2020-06-04] MEDS: DOCUSATE SODIUM 100 MG CAPSULE PO SCH (11:42)
[2020-06-04] MEDS: CLOPIDOGREL BISULFATE 75 MG TABLET PO SCH (11:42)
[2020-06-04] MEDS: FAMOTIDINE 20 MG TABLET PO SCH ×2 (11:42→22:33)
[2020-06-04] MEDS: ASPIRIN 81 MG TABLET, ENT COATED PO SCH (11:42)
[2020-06-04] MEDS: ALBUTEROL SULFATE 0.083% NEB 2.5 MG/3 ML AMPUL NEB PRN (12:29)
--- NOTE | 2020-06-04 13:41 | RADIOLOGY REPORT (SQ) ---
EXAM DESCRIPTION: CAROTID DOPPLER IMAGES COMPLETED DATE/TIME: 06/04/2020 1:29 pm REASON FOR STUDY: suspected cva COMPARISON: None. TECHNIQUE: Grayscale ultrasound, Doppler velocity and spectra, and color Doppler images acquired of the extra-cranial carotid and vertebral arteries. Images stored on PACS. LIMITATIONS: None. FINDINGS: RIGHT CAROTID CCA Velocities: Within normal limits. ICA Velocities Peak systolic 85 cm/s. End diastolic 26 cm/s. Proximal ICA/CCA peak systolic ratio 1.7. There is some plaque in the external carotid with 50 to 69% stenosis. LEFT CAROTID CCA Velocities: Within normal limits. ICA Velocities Peak systolic 53 cm/s. End diastolic 18 cm/s. Proximal ICA/CCA peak systolic ratio 1.3. Spectra normal. No significant plaque. VERTEBRAL ARTERIES: Antegrade flow. Normal waveforms. SUBCLAVIAN ARTERIES: No finding. OTHER: No other significant finding. IMPRESSION: No hemodynamically significant stenosis in either ICA. There is narrowing of the left e xternal carotid artery. COMMENT: Quality ID #[id number]: Velocity criteria are extrapolated from the diameter data as defined by t he Society of Radiologists in Ultrasound Consensus Conference. Radiology 2003: 229; 340-346. TECHNICAL DOCUMENTATION: JOB ID: [id number] 2010 [employer]- All Rights Reserved Reading location - IP/workstation name: [email or web address]
[2020-06-04] MEDS ORDERED: LOSARTAN POTASSIUM 25 MG TABLET PO SCH (15:30)
[2020-06-04] MEDS ORDERED: NORMAL SALINE 500 ML IV ONE (19:31)
--- NOTE | 2020-06-04 19:53 | EKG REPORT ---
SEVERITY:- ABNORMAL ECG - SUPRAVENTRICULAR TACHYCARDIA REPOLARIZATION ABNORMALITY, PROB RATE RELATED : Confirmed by: Jeaneth Whelan 04-Jun-2020 19:53:24
--- NOTE | 2020-06-04 19:54 | EKG REPORT ---
SEVERITY:- BORDERLINE ECG - SINUS RHYTHM BORDERLINE PROLONGED QT INTERVAL : Confirmed by: Jeaneth Whelan 04-Jun-2020 19:53:29
--- NOTE | 2020-06-04 19:59 | RADIOLOGY REPORT (SQ) ---
EXAM DESCRIPTION: CT HEAD WITHOUT IMAGES COMPLETED DATE/TIME: 06/04/2020 7:41 pm REASON FOR STUDY: altered mental status COMPARISON: CT 06/04/2020 TECHNIQUE: Axial images acquired through the brain without intravenous contrast. Images reviewed wi th bone, brain and subdural windows. Additional sagittal and coronal reconstructions were generated. Images stored on PACS. All CT scanners at this facility use dose modulation, iterative reconstruction, and/or weight based d osing when appropriate to reduce radiation dose to as low as reasonably achievable (ALARA). [facility]: Dose Right [facility]: CareDose [facility]: Dose Right [facility]: Teradose 4D [facility]: Smart [place] RADIATION DOSE: CT Rad equipment meets quality standard of care and radiation dose reduction techniq ues were employed. CTDIvol: 53.2 mGy. DLP: 1044 mGy-cm. mGy. LIMITATIONS: None. FINDINGS: VENTRICLES: Normal size and contour. CEREBRUM: No masses. No hemorrhage. No midline shift. No evidence for acute infarction. Normal gra y/white matter differentiation. No areas of low density in the white matter. CEREBELLUM: No masses. No hemorrhage. No alteration of density. No evidence for acute infarction. EXTRAAXIAL SPACES: No fluid collections. No masses. ORBITS AND GLOBE: Hyperdense left optic globe. Orbits are intact. CALVARIUM: No fracture. PARANASAL SINUSES: No fluid or mucosal thickening. SOFT TISSUES: No mass or hematoma. OTHER: No other significant finding. IMPRESSION: NO ACUTE INTRACRANIAL IMAGING FINDINGS. EVIDENCE OF ACUTE STROKE: NO. COMMENT: Quality ID # [id number]: Final reports with documentation of one or more dose reduction techniques (e.g., Automated exposure control, adjustment of the mA and/or kV according to patient size, use of iterative reconstruction technique) TECHNICAL DOCUMENTATION: JOB ID: [id number] 2010 [employer]- All Rights Reserved Reading location - IP/workstation name: [email or web address]
--- NOTE | 2020-06-04 20:21 | XCELERA REPORT ---
[address] [address] Transthoracic Echocardiogram Report Name: CHLOE DEAN Age: 70 yrs Gender: Female : 1950 Patient Status: Inpatient Patient Location: [place] [address]^A Study Date: 06/04/2020 11:08 AM Height: 58 in Weight: 164 lb BSA: 1.7 m2 Procedure: A complete two-dimensional transthoracic echocardiogram was performed (2D, M-mode, spectral and color flow Doppler). The study was technically limited with all images being suboptimal in quality. Reason For Study: CVA Ordering Physician: RYAN LOCKHART Performed By: Kimberly Davenport Interpretation Summary Poor quality study. The left ventricle is grossly normal size. Left ventricular systolic function is normal. The Ejection Fraction estimate is 55-60%. Doppler measurements suggest impaired left ventricular relaxation, which is associated with grade I/IV or mild diastolic dysfunction. Regional wall motion abnormalities cannot be excluded due to limited visualization. Thrombus can not be excluded. Valvular structures are not well visualized. MMode/2D Measurements & Calculations RVDd: 2.3 cm LVIDd: 3.7 cm FS: 29.5 % Ao root diam: 2.9 cm IVSd: 0.96 cm LVIDs: 2.6 cm EDV(Teich): 58.9 ml Ao root area: 6.5 cm2 LVPWd: 1.0 cm ESV(Teich): 25.1 ml LA dimension: 2.7 cm EF(Teich): 57.4 % Doppler Measurements & Calculations MV E max barbie: MV P1/2t max barbie: Ao V2 max: LV V1 max P.3 cm/sec 54.8 cm/sec 171.2 cm/sec 9.1 mmHg MV A max barbie: MV P1/2t: 105.2 msec Ao max PG: LV V1 max: 90.3 cm/sec MVA(P1/2t): 2.1 cm2 11.8 mmHg 150.8 cm/sec MV E/A: 0.59 MV dec slope: 152.6 cm/sec2 MV dec time: 0.38 sec PA V2 max: MV P1/2t-pr_phl: 111.1 cm/sec 105.2 msec PA max P.9 mmHg Left Ventricle The left ventricle is grossly normal size. Left ventricular systolic function is normal. The Ejection Fraction estimate is 55-60%. Doppler measurements suggest impaired left ventricular relaxation, which is associated with grade I/IV or mild diastolic dysfunction. Regional wall motion abnormalities cannot be excluded due to limited visualization. Thrombus can not be excluded. Right Ventricle The right ventricle is grossly normal size. The right ventricular systolic function is normal. Atria The right atrium is normal. The left atrial size is normal. Interarterial septum not well visualized and not well dopplered. Cannot comment on ASD/PFO presence. Mitral Valve The mitral valve is not well visualized. There is no mitral valve stenosis. There is no mitral regurgitation noted. Aortic Valve The aortic valve is moderately calcified. No aortic regurgitation is present. Tricuspid Valve The tricuspid valve is not well visualized secondary to technical limitations. Tricuspid regurgitation jet envelope not well defined to measure RV systolic pressure accurately. Pulmonic Valve The pulmonic valve is not well visualized. Can not exclude trace physiologic IA. Great Vessels The inferior vena cava appeared normal and decreased > 50% with respiration (RAP 5-10 mmHg). Effusions There is no pericardial effusion. : RYAN LOCKHART Antonio
[2020-06-04] MEDS ORDERED: INFLUENZA QUAD (6MOS+) 2020-21 VAC 0.5 ML SYR IM ONE (21:15)
--- NOTE | 2020-06-04 21:45 | PDOC PROGRESS REPORT ---
Subjective Progress Note for:: 06/04/20 Subjective:: SHARON DEAN is a 70 year old female with history of type 2 diabetes mellitus with retinopathy, multiple myeloma, hypertension, COPD, presents to the hospital for evaluation of left-sided weakness which began 2 days ago. It involve the leg and her arm. Since then, she has been having difficulty getting around to the point where she had a fall. Ambulation has been significantly impacted and her daughter urged her to come into the hospital today. She endorses numbness which is improving in her left arm. Denies any tingling sensation. Denies any slurred speech. Denies any dysphagia. Follows with Dr. Vyas regarding her multiple myeloma and is on Revlimid. Patient denies any prior history of stroke or TIAs. She denies any heart disease. 06/04/20 D2 hospital stay. She was seen and examined at bedside. Denies any new neurologic symptom but still has left sided weakness. No chest pain, no SOB. MRI head showed acute nonhemorrhagic lacunar infarcts right [place] radiata and left restoration cortex. Started on aspirin Plavix and high-dose Lipitor. Carotid ultrasound did not show any significant narrowing, echo showed normal EF mild diastolic dysfunction. Patient had an episode of tachycardia and hypotension in the emergency room, resolved after a few minutes. Per RN in the ED tracing showing sinus tachycardia. Reason For Visit: ACUTE CVA Physical Exam Vital Signs: Temp Pulse Resp BP Pulse Ox 98.1 F 85 16 158/88 H 96 06/04/20 21:01 06/04/20 21:01 06/04/20 21:01 06/04/20 20:01 06/04/20 21:01 Intake & Output 06/03/20 06/04/20 06/05/20 06:59 06:59 06:59 Intake Total 1000 500 Output Total 100 Balance 1000 400 Weight 74.4 kg 75.2 kg General appearance: PRESENT: no acute distress, cooperative Head exam: PRESENT: atraumatic Eye exam: PRESENT: EOMI, PERRLA Mouth exam: PRESENT: moist Neck exam: PRESENT: full ROM Respiratory exam: PRESENT: clear to auscultation mary jo, symmetrical. ABSENT: tachypnea, unlabored Cardiovascular exam: PRESENT: RRR, +S1, +S2 Pulses: PRESENT: normal radial pulses GI/Abdominal exam: PRESENT: normal bowel sounds, soft. ABSENT: rebound, tenderness Extremities exam: ABSENT: +2 edema Musculoskeletal exam: PRESENT: other - Limited range of motion left arm and left leg Neurological exam: PRESENT: alert, awake, oriented to person, oriented to place, oriented to time, CN II-XII grossly intact, motor sensory deficit - Grade 3 out of 5 motor strength left arm and left leg. ABSENT: aphasic Psychiatric exam: PRESENT: normal mood Skin exam: PRESENT: normal color Results Laboratory Results: 06/03/20 20:15 06/04/20 05:38 06/04/20 06/04/20 05:38 20:31 Sodium 136.1 L Potassium 3.6 Chloride 104 Carbon Dioxide 20 L Anion Gap 12 BUN 12 Creatinine 0.71 Est GFR ( Amer) > 60 Glucose 203 H Calcium 9.0 Magnesium 1.6 Triglycerides 223 H Cholesterol 241.18 H LDL Cholesterol Direct 182 H VLDL Cholesterol 44.6 H HDL Cholesterol 55 06/03/20 20:15 Troponin I < 0.012 Impressions: Brain MRI with MRA 06/04/20 00:00 IMPRESSION: NORMAL MRA OF THE [place]. Head MRI 06/04/20 00:00 IMPRESSION: Acute, nonhemorrhagic lacunar infarcts right [place] radiata and left restoration cortex. EVIDENCE OF ACUTE STROKE: YES. Bilateral MCA. Chest X-Ray 06/04/20 01:23 IMPRESSION: No acute process. No pneumonia or edema. Head CT 06/04/20 01:23 IMPRESSION: No acute intracranial findings. Carotid Doppler Study 06/04/20 04:15 IMPRESSION: No hemodynamically significant stenosis in either ICA. There is narrowing of the left external carotid artery. Assessment and Plan - Diagnosis (1) Acute CVA (cerebrovascular accident) Is this a current diagnosis for this admission?: Yes Plan: Suspected acute CVA which likely occurred 2 days ago at the time when patient started experiencing left-sided weakness. Not a tPA candidate, out of window time frame Brain CT negative for hemorrhagic MRI head acute nonhemorrhagic lacunar infarcts right [place] radiata and left temporal cortex Carotid Doppler no significant stenosis Echo showed EF 55 to 60%, grade 1 mild diastolic dysfunction. NIHSS score is 5 lipid panel increased LDL and total choleand A1c 9.3 in the morning Daily aspirin, Plavix for 21 days, high-dose atorvastatin Swallow screen Neuro checks Cardiac monitoring PT/OT/social work consultation May need placement of acute rehab given degree of her ambulatory dysfunction Patient educator DVT/GI prophylaxis (2) Multiple myeloma Qualifiers: Multiple myeloma remission status: unspecified Qualified Code(s): C90.00 - Multiple myeloma not having achieved remission Is this a current diagnosis for this admission?: Yes Plan: Outpatient follow-up with hematology/oncology Dr. Lebron. Takes Revlimid (3) Hypotension Is this a current diagnosis for this admission?: Yes Plan: - transient. with associated tachycardia - received 1 dose of 25 mg Losartan - unclear cause tachycardia mediated or Vtach - continue tele monitor - check Mg (4) Diabetes Qualifiers: Diabetes mellitus type: type 2 Diabetes mellitus residential insulin use: without residential use Diabetes mellitus complication status: with ophthalmic complications Diabetes mellitus complication detail: with diabetic retinopathy Diabetic retinopathy severity: with unspecified retinopathy severity Diabetes mellitus macular edema: macular edema presence unspecified Laterality: left Qualified Code(s): E11.319 - Type 2 diabetes mellitus with unspecified diabetic retinopathy without macular edema Is this a current diagnosis for this admission?: Yes Plan: A1C 9.3 On oral anti-glycemic. Sliding scale insulin, Accu-Cheks, check hemoglobin A1c (5) Hypertension Qualifiers: Hypertension type: essential hypertension Qualified Code(s): I10 - Essential (primary) hypertension Is this a current diagnosis for this admission?: Yes Plan: - she was out of the permissive hypertension 48 hr window so she was started on losartan 25 daily - got 1 dsoe then had a hypotensive episode - will stop for now and monitor BP. (6) COPD (chronic obstructive pulmonary disease) Qualifiers: COPD type: unspecified COPD Qualified Code(s): J44.9 - Chronic obstructive pulmonary disease, unspecified Is this a current diagnosis for this admission?: Yes Plan: Albuterol as needed. Not in acute exacerbation. (7) Tobacco abuse Is this a current diagnosis for this admission?: Yes Plan: Counseled on smoking cessation. - Time Time Spent with patient: 35 or more minutes Anticipated Discharge Disposition: Home, Self Care Anticipated Discharge Timeframe: to be determined
[2020-06-04] MEDS: ATORVASTATIN CALCIUM 80 MG TABLET PO SCH (22:33)
[2020-06-05] MEDS ORDERED: ADENOSINE INJ/PF 6 MG/2 ML SDV IV ONE ×4 (01:27→11:00)
[2020-06-05 07:41] LABS: ANION GAP 11 (5-19); BLOOD UREA NITROGEN 7 mg/dL (7-20); CALCIUM 9.1 mg/dL (8.4-10.2); CARBON DIOXIDE 23 mmol/L (22-30); CHLORIDE 103 mmol/L (98-107); GLUCOSE 166 mg/dL (75-110); POTASSIUM 3.3 mmol/L (3.6-5.0)
--- NOTE | 2020-06-05 08:24 | PDOC CONSULTATION ---
Consultation Consult Date: 06/05/20 Attending physician:: RYAN LOCKHART Provider Consulted: SHARMILA LAUREN Consult reason:: Known h/o myeloma here w/ weakness History of Present Illness Admission Date/PCP: 06/04/20 03:49 Patient complains of: Weakness, confusion History of Present Illness: CHLOE DEAN is a 70 year old female w/ known h/o multiple myeloma dx about 2 yrs ago initially, rx w/ induction treatment w/ RVD then has been on maintenance revlimid now for about 18 months w/ complete response noted, last myeloma labs done in office 1 m ago. Her daughter called and said pt was very weak, confused on the phone at times. She had fall and was brought to ED. Here she had w/u including Brain MRI and found to have acute R sided stroke w/ L sided weakness. Past Medical History Cardiac Medical History: Reports: Hyperlipidema, Hypertension - MEDICATED Denies: Myocardial Infarction Pulmonary Medical History: Reports: Chronic Obstructive Pulmonary Disease (COPD) Denies: Asthma Neurological Medical History: Denies: Seizures Endocrine Medical History: Reports: Diabetes Mellitus Type 2 GI Medical History: Denies: Hepatitis, Hiatal Hernia Psychiatric Medical History: Reports: Depression Hematology: Denies: Anemia, Sickle Cell Disease Past Surgical History Past Surgical History: Reports: Other - Eye surgery Denies: Amputation, Hysterectomy, Mastectomy, Pacemaker Social History Lives with: Family Smoking Status: Current Every Day Smoker Cigarettes Packs Per Day: 1 Electronic Cigarette use?: No Number of Years Smokin Last Time Smoked: 06/01/2020 Frequency of Alcohol Use: None Hx Recreational Drug Use: No Drugs: None Hx Prescription Drug Abuse: No - Advance Directive Resuscitation Status: Full Code Family History Family History: None Parental Family History Reviewed: Yes Children Family History Reviewed: Yes Sibling(s) Family History Reviewed.: Yes Medication/Allergy Home Medications: Albuterol Sulfate [Albuterol Sulfate Hfa] 1 puff IH Q6HP PRN 06/04/20 Aspirin [Ecotrin 81 mg EC Tablet] 81 mg PO DAILY 06/04/20 Lenalidomide [Revlimid] 10 mg PO DAILY 06/04/20 Allergies/Adverse Reactions: No Known Allergies Allergy (Verified 06/03/20 19:40) Review of Systems Constitutional: ABSENT: chills, fever(s), headache(s), weight gain, weight loss Eyes: ABSENT: visual disturbances Ears: ABSENT: hearing changes Cardiovascular: ABSENT: chest pain, dyspnea on exertion, edema, orthropnea, palpitations Respiratory: ABSENT: cough, hemoptysis Gastrointestinal: ABSENT: abdominal pain, constipation, diarrhea, hematemesis, hematochezia, nausea, vomiting Genitourinary: ABSENT: dysuria, hematuria Musculoskeletal: ABSENT: joint swelling Integumentary: ABSENT: rash, wounds Neurological: ABSENT: abnormal gait, abnormal speech, confusion, dizziness, focal weakness, syncope Psychiatric: ABSENT: anxiety, depression, homidical ideation, suicidal ideation Endocrine: ABSENT: cold intolerance, heat intolerance, polydipsia, polyuria Hematologic/Lymphatic: ABSENT: easy bleeding, easy bruising Physical Exam Vital Signs: Temp Pulse Resp BP Pulse Ox 98.3 F 88 17 160/98 H 97 06/05/20 07:43 06/05/20 07:29 06/05/20 07:29 06/05/20 07:29 06/05/20 07:29 Intake & Output 06/04/20 06/05/20 06/06/20 06:59 06:59 06:59 Intake Total 1000 620 Output Total 1000 Balance 1000 -380 Weight 74.4 kg 76.4 kg General appearance: PRESENT: no acute distress, well-developed, well-nourished Head exam: PRESENT: atraumatic, normocephalic Eye exam: PRESENT: conjunctiva pink, EOMI, PERRLA. ABSENT: scleral icterus Ear exam: PRESENT: normal external ear exam Mouth exam: PRESENT: moist, tongue midline Neck exam: ABSENT: carotid bruit, JVD, lymphadenopathy, thyromegaly Respiratory exam: PRESENT: clear to auscultation mary jo. ABSENT: rales, rhonchi, wheezes Cardiovascular exam: PRESENT: RRR. ABSENT: diastolic murmur, rubs, systolic murmur Pulses: PRESENT: normal dorsalis pedis pul Vascular exam: PRESENT: normal capillary refill GI/Abdominal exam: PRESENT: normal bowel sounds, soft. ABSENT: distended, guarding, mass, organolmegaly, rebound, tenderness Rectal exam: PRESENT: deferred Extremities exam: PRESENT: full ROM. ABSENT: calf tenderness, clubbing, pedal edema Neurological exam: PRESENT: alert, awake, oriented to person, oriented to place, oriented to time, oriented to situation, CN II-XII grossly intact. ABSENT: motor sensory deficit Psychiatric exam: PRESENT: appropriate affect, normal mood. ABSENT: homicidal ideation, suicidal ideation Skin exam: PRESENT: dry, intact, warm. ABSENT: cyanosis, rash Results Laboratory Results: 06/03/20 20:15 06/05/20 06:28 06/04/20 06/05/20 20:31 06:28 Sodium 137.4 Potassium 3.3 L Chloride 103 Carbon Dioxide 23 Anion Gap 11 BUN 7 Creatinine 0.65 Est GFR ( Amer) > 60 Glucose 166 H Calcium 9.1 Magnesium 1.6 06/03/20 20:15 Troponin I < 0.012 Impressions: Brain MRI with MRA 06/04/20 00:00 IMPRESSION: NORMAL MRA OF THE [place]. Head MRI 06/04/20 00:00 IMPRESSION: Acute, nonhemorrhagic lacunar infarcts right [place] radiata and left sabianism cortex. EVIDENCE OF ACUTE STROKE: YES. Bilateral MCA. Chest X-Ray 06/04/20 01:23 IMPRESSION: No acute process. No pneumonia or edema. Head CT 06/04/20 01:23 IMPRESSION: No acute intracranial findings. Carotid Doppler Study 06/04/20 04:15 IMPRESSION: No hemodynamically significant stenosis in either ICA. There is narrowing of the left external carotid artery. Assessment & Plan - Diagnosis (1) Acute CVA (cerebrovascular accident) Is this a current diagnosis for this admission?: Yes Plan: Should not be related to myeloma or treatments. She is a good candidate for intensive rehab as her cancer is under very good control over last 18 months. I recommend holding her revlimid (oral chemotherapeutic) as she recovers and only restart when she is stronger. She would be a good candidate for ultimate in rehab at some point, would favor [facility]. (2) Multiple myeloma Qualifiers: Multiple myeloma remission status: in remission Qualified Code(s): C90.01 - Multiple myeloma in remission Is this a current diagnosis for this admission?: Yes Plan: Currently in complete response/remission, has been on maintenance revlimid. As noted above, would hold that for now and only restart once pt stronger and out of rehab care. - Time Time Spent: Greater than 70 Minutes
[2020-06-05 08:47] LABS: ABSOLUTE EOSINOPHILS # (AUTO) 0.2 10^3/uL (0.0-0.6); ABSOLUTE LYMPHOCYTES (AUTO) 1.7 10^3/uL (0.5-4.7); ABSOLUTE MONOCYTES (AUTO) 0.5 10^3/uL (0.1-1.4); ABSOLUTE NEUT (AUTO) 3.7 10^3/uL (1.7-8.2); BASOPHILS % (AUTO) 0.4 % (0-2); EOSINOPHILS % (AUTO) 3.9 % (0-6); HEMOGLOBIN 13.9 g/dL (12.0-15.5); LYMPHOCYTES % (AUTO) 27.9 % (13-45); MEAN CORPUSCULAR HEMOGLOBIN 30.7 pg (27.0-33.4); MEAN CORPUSCULAR HGB CONC 34.7 g/dL (32.0-36.0); MEAN CORPUSCULAR VOLUME 89 fl (80-97); MONOCYTES % (AUTO) 7.8 % (3-13); PLATELET COUNT 176 10^3/uL (150-450); RED BLOOD COUNT 4.52 10^6/uL (3.72-5.28); RED CELL DISTRIBUTION WIDTH 13.3 % (11.5-14.0); TOTAL CELLS COUNTED % (AUTO) 100 %; WHITE BLOOD COUNT 6.2 10^3/uL (4.0-10.5)
[2020-06-05 09:03] LABS: ALBUMIN 3.7 g/dL (3.5-5.0); ALKALINE PHOSPHATASE 95 U/L (38-126); ASPARTATE AMINO TRANSFERASE 25 U/L (14-36); BILIRUBIN,DIRECT 0.5 mg/dL (0.0-0.4); BILIRUBIN,TOTAL 1.4 mg/dL (0.2-1.3); TOTAL PROTEIN 6.6 g/dL (6.3-8.2)
[2020-06-05] MEDS: INSULIN LISPRO 100 UNIT/ML 3 ML VIAL SUBCUT SCH ×4 (09:09→21:32)
[2020-06-05] MEDS: MAGNESIUM SULFATE/D5W 1 GM/100 ML RTUPB IV SCH ×2 (09:09→09:45)
[2020-06-05] MEDS: FAMOTIDINE 20 MG TABLET PO SCH ×2 (09:10→21:33)
[2020-06-05] MEDS: CLOPIDOGREL BISULFATE 75 MG TABLET PO SCH (09:10)
[2020-06-05] MEDS: DOCUSATE SODIUM 100 MG CAPSULE PO SCH (09:10)
[2020-06-05] MEDS: ASPIRIN 81 MG TABLET, ENT COATED PO SCH (09:10)
[2020-06-05] MEDS: ENOXAPARIN SODIUM INJ 40 MG/0.4 ML DISP.SYRIN SUBCUT SCH (09:10)
[2020-06-05] MEDS: AMLODIPINE BESYLATE 5 MG TABLET PO SCH (09:10)
[2020-06-05] MEDS: ALBUTEROL SULFATE 0.083% NEB 2.5 MG/3 ML AMPUL NEB PRN ×2 (09:16→20:49)
[2020-06-05] MEDS ORDERED: IPRATROPIUM/ALBUTEROL 0.5-2.5 MG/3 ML AMPUL NEB PRN (09:18)
[2020-06-05] MEDS ORDERED: METOPROLOL SUCCINATE 25 MG TAB.SR.24H PO ONE (11:00)
--- NOTE | 2020-06-05 13:28 | PDOC CONSULTATION ---
Consultation Consult Date: 06/05/20 Attending physician:: WALLY SALAS Provider Consulted: XAVIER HARVEY Consult reason:: SVT History of Present Illness Admission Date/PCP: 06/04/20 03:49 Patient complains of: Weakness History of Present Illness: CHLOE DEAN is a 70 year old female With the following active problems 1. Multiple myeloma 2. Systemic hypertension 3. Dyslipidemia 4. Diabetes mellitus 5. Nicotine dependence-cigarettes Patient was admitted to the hospital with complaints of weakness. She was found to have had an acute stroke. She was noted to have paroxysmal episodes of supraventricular tachycardia although without symptoms. In the emergency room she responded to a vagal maneuver and on 2 separate occasions she required adenosine 6 mg intravenously to terminate the arrhythmia. Presently she is doing well without any symptoms. No previous episodes of arrhythmia. No chest pain. No prior history of coronary artery disease Patient continues to smoke cigarettes. No familial illnesses reported Review of systems positive for weakness on the left side especially. No reported palpitations or chest pain. Full 11 review of systems was asked. Pertinent positives noted here and in the HPI all other systems are negative. Past Medical History Cardiac Medical History: Reports: Hyperlipidema, Hypertension - MEDICATED Denies: Myocardial Infarction Pulmonary Medical History: Reports: Chronic Obstructive Pulmonary Disease (COPD) Denies: Asthma Neurological Medical History: Denies: Seizures Endocrine Medical History: Reports: Diabetes Mellitus Type 2 GI Medical History: Denies: Hepatitis, Hiatal Hernia Psychiatric Medical History: Reports: Depression Hematology: Denies: Anemia, Sickle Cell Disease Past Surgical History Past Surgical History: Reports: Other - Eye surgery Denies: Amputation, Hysterectomy, Mastectomy, Pacemaker Social History Lives with: Family Smoking Status: Current Every Day Smoker Cigarettes Packs Per Day: 1 Electronic Cigarette use?: No Number of Years Smokin Last Time Smoked: 06/01/2020 Frequency of Alcohol Use: None Hx Recreational Drug Use: No Drugs: None Hx Prescription Drug Abuse: No - Advance Directive Resuscitation Status: Full Code Family History Family History: None Parental Family History Reviewed: Yes - No familial illnesses Children Family History Reviewed: NA Sibling(s) Family History Reviewed.: NA Medication/Allergy Home Medications: Albuterol Sulfate [Albuterol Sulfate Hfa] 1 puff IH Q6HP PRN 06/04/20 Aspirin [Ecotrin 81 mg EC Tablet] 81 mg PO DAILY 06/04/20 Lenalidomide [Revlimid] 10 mg PO DAILY 06/04/20 Allergies/Adverse Reactions: No Known Allergies Allergy (Verified 06/03/20 19:40) Physical Exam Vital Signs: Temp Pulse Resp BP Pulse Ox 98.3 F 92 17 161/76 H 94 06/05/20 11:22 06/05/20 12:00 06/05/20 12:00 06/05/20 12:00 06/05/20 12:00 Intake & Output 06/04/20 06/05/20 06/06/20 06:59 06:59 06:59 Intake Total 1000 620 160 Output Total 1000 Balance 1000 -380 160 Weight 74.4 kg 76.4 kg General appearance: PRESENT: no acute distress, cooperative, well-developed, we ll-nourished Head exam: PRESENT: atraumatic, normocephalic Eye exam: PRESENT: conjunctiva pink, EOMI Mouth exam: PRESENT: moist Respiratory exam: PRESENT: clear to auscultation mary jo, symmetrical, unlabored Cardiovascular exam: PRESENT: RRR, +S1, +S2 Pulses: PRESENT: normal radial pulses GI/Abdominal exam: PRESENT: soft Rectal exam: PRESENT: deferred Neurological exam: PRESENT: alert, awake, oriented to person, oriented to place, oriented to time, oriented to situation Psychiatric exam: PRESENT: appropriate affect Skin exam: PRESENT: dry, intact, normal color Results Laboratory Results: 06/05/20 06:28 06/05/20 06:28 06/04/20 06/05/20 06/05/20 20:31 06:28 06:28 WBC 6.2 RBC 4.52 Hgb 13.9 Hct 40.0 MCV 89 MCH 30.7 MCHC 34.7 RDW 13.3 Plt Count 176 Seg Neutrophils % 60.0 Sodium 137.4 Potassium 3.3 L Chloride 103 Carbon Dioxide 23 Anion Gap 11 BUN 7 Creatinine 0.65 Est GFR ( Amer) > 60 Est GFR (Non-Af Amer) Glucose 166 H Calcium 9.1 Magnesium 1.6 Total Bilirubin AST Alkaline Phosphatase Total Protein Albumin 06/05/20 06:28 WBC RBC Hgb Hct MCV MCH MCHC RDW Plt Count Seg Neutrophils % Sodium Cancelled Potassium Cancelled Chloride Cancelled Carbon Dioxide Cancelled Anion Gap Cancelled BUN Cancelled Creatinine Cancelled Est GFR ( Amer) Cancelled Est GFR (Non-Af Amer) Cancelled Glucose Cancelled Calcium Cancelled Magnesium Total Bilirubin 1.4 H AST 25 Alkaline Phosphatase 95 Total Protein 6.6 Albumin 3.7 06/03/20 20:15 Troponin I < 0.012 EKG Comments: Telemetry review shows episodes of narrow complex of her ventricular tachycardia. Twelve-lead EKG 06/03/2020. Done in the office independently viewed by me. Sinus rhythm 83 bpm, normal AV conduction, QTC slightly prolonged at 489 ms Twelve-lead EKG 04 June [id number] Supraventricular tachycardia 183 bpm, rate related repolarization abnormality Transthoracic echocardiogram 06/04/2020 Left ventricular ejection fraction is preserved. 55 to 60%. RV is normal in size and function Valvular structures are not well visualized. Impressions: Brain MRI with MRA 06/04/20 00:00 IMPRESSION: NORMAL MRA OF THE [place]. Head MRI 06/04/20 00:00 IMPRESSION: Acute, nonhemorrhagic lacunar infarcts right [place] radiata and left [place]ism cortex. EVIDENCE OF ACUTE STROKE: YES. Bilateral MCA. Chest X-Ray 06/04/20 01:23 IMPRESSION: No acute process. No pneumonia or edema. Head CT 06/04/20 01:23 IMPRESSION: No acute intracranial findings. Carotid Doppler Study 06/04/20 04:15 IMPRESSION: No hemodynamically significant stenosis in either ICA. There is na rrowing of the left external carotid artery. Assessment & Plan - Diagnosis (1) Acute CVA (cerebrovascular accident) Is this a current diagnosis for this admission?: Yes Plan: Plan per primary team Patient is being planned and evaluated for rehab Likely atherosclerotic stroke given normal sinus rhythm on EKG and only episodes of SVT (2) Tobacco abuse Is this a current diagnosis for this admission?: Yes Plan: Patient was counseled regarding tobacco abuse. Especially with atherosclerotic stroke and risk factors for coronary disease she should stop smoking. Spent a total of 3 minutes discussing ill effects of cigarettes on the cardiovascular system (3) SVT (supraventricular tachycardia) Is this a current diagnosis for this admission?: Yes Plan: Paroxysmal supraventricular tachycardia No previous history of this. EKG with normal conduction system. Asymptomatic episodes Would try metoprolol in low doses 25 mg twice daily or 50 mg XL formulation to decrease the likelihood of SVT She may require outpatient evaluation for catheter ablation or alternative pharmacotherapy clinic measures Should continue with stroke rehab and other plans as already formulated
--- NOTE | 2020-06-05 13:40 | PDOC PROGRESS REPORT ---
Subjective Progress Note for:: 06/05/20 Subjective:: SHARON DEAN is a 70 year old female with history of type 2 diabetes mellitus with retinopathy, multiple myeloma, hypertension, COPD, presents to the hospital for evaluation of left-sided weakness which began 2 days ago. It involve the leg and her arm. Since then, she has been having difficulty getting around to the point where she had a fall. Ambulation has been significantly impacted and her daughter urged her to come into the hospital today. She endorses numbness which is improving in her left arm. Denies any tingling sensation. Denies any slurred speech. Denies any dysphagia. Follows with Dr. Vyas regarding her multiple myeloma and is on Revlimid. Patient denies any prior history of stroke or TIAs. She denies any heart disease. 06/04/20 D2 hospital stay. She was seen and examined at bedside. Denies any new neurologic symptom but still has left sided weakness. No chest pain, no SOB. MRI head showed acute nonhemorrhagic lacunar infarcts right [place] radiata and left jewish cortex. Started on aspirin Plavix and high-dose Lipitor. Carotid ultrasound did not show any significant narrowing, echo showed normal EF mild diastolic dysfunction. Patient had an episode of tachycardia and hypotension in the emergency room, resolved after a few minutes. Per RN in the ED tracing showing sinus tachycardia. 06/05/20 D3 Hospital stay. She was seen and examined at bedside. She was noted to have SVT episodes once in the ED and twice overnight terminated by adenosine 6 mg. Mostly asymptomatic. She denied any chest pain, SOB, palpitations, just feeling hot. Cardiology was consulted who recommended metoprolol. Acute rehab doctor consulted, requesting for a bubble study. PT/OT saw her recommend extensive rehab needs. Reason For Visit: ACUTE CVA Physical Exam Vital Signs: Temp Pulse Resp BP Pulse Ox 98.3 F 92 17 161/76 H 94 06/05/20 11:22 06/05/20 12:00 06/05/20 12:00 06/05/20 12:00 06/05/20 12:00 Intake & Output 06/04/20 06/05/20 06/06/20 06:59 06:59 06:59 Intake Total 1000 620 160 Output Total 1000 Balance 1000 -380 160 Weight 74.4 kg 76.4 kg General appearance: PRESENT: cooperative, mild distress Head exam: PRESENT: atraumatic, normocephalic Eye exam: PRESENT: PERRLA Mouth exam: PRESENT: moist Neck exam: PRESENT: full ROM Respiratory exam: PRESENT: clear to auscultation mary jo, symmetrical, unlabored. ABSENT: rales Cardiovascular exam: PRESENT: +S1, +S2, tachycardia. ABSENT: diastolic murmur, gallop Pulses: PRESENT: normal radial pulses GI/Abdominal exam: PRESENT: normal bowel sounds, soft. ABSENT: tenderness Extremities exam: PRESENT: full ROM Musculoskeletal exam: PRESENT: full ROM Neurological exam: PRESENT: alert, awake, oriented to person, oriented to place, oriented to time, CN II-XII grossly intact, motor sensory deficit - left sided hemiparesis Psychiatric exam: PRESENT: normal mood Skin exam: PRESENT: normal color Results Laboratory Results: 06/05/20 06:28 06/05/20 06:28 06/04/20 06/05/20 06/05/20 20:31 06:28 06:28 WBC 6.2 RBC 4.52 Hgb 13.9 Hct 40.0 MCV 89 MCH 30.7 MCHC 34.7 RDW 13.3 Plt Count 176 Seg Neutrophils % 60.0 Sodium 137.4 Potassium 3.3 L Chloride 103 Carbon Dioxide 23 Anion Gap 11 BUN 7 Creatinine 0.65 Est GFR ( Amer) > 60 Est GFR (Non-Af Amer) Glucose 166 H Calcium 9.1 Magnesium 1.6 Total Bilirubin AST Alkaline Phosphatase Total Protein Albumin 06/05/20 06:28 WBC RBC Hgb Hct MCV MCH MCHC RDW Plt Count Seg Neutrophils % Sodium Cancelled Potassium Cancelled Chloride Cancelled Carbon Dioxide Cancelled Anion Gap Cancelled BUN Cancelled Creatinine Cancelled Est GFR ( Amer) Cancelled Est GFR (Non-Af Amer) Cancelled Glucose Cancelled Calcium Cancelled Magnesium Total Bilirubin 1.4 H AST 25 Alkaline Phosphatase 95 Total Protein 6.6 Albumin 3.7 06/03/20 20:15 Troponin I < 0.012 Impressions: Brain MRI with MRA 06/04/20 00:00 IMPRESSION: NORMAL MRA OF THE [place]. Head MRI 06/04/20 00:00 IMPRESSION: Acute, nonhemorrhagic lacunar infarcts right [place] radiata and left jewish cortex. EVIDENCE OF ACUTE STROKE: YES. Bilateral MCA. Chest X-Ray 06/04/20 01:23 IMPRESSION: No acute process. No pneumonia or edema. Head CT 06/04/20 01:23 IMPRESSION: No acute intracranial findings. Carotid Doppler Study 06/04/20 04:15 IMPRESSION: No hemodynamically significant stenosis in either ICA. There is narrowing of the left external carotid artery. Assessment and Plan - Diagnosis (1) Acute CVA (cerebrovascular accident) Is this a current diagnosis for this admission?: Yes Plan: Suspected acute CVA which likely occurred 2 days ago at the time when patient started experiencing left-sided weakness. Not a tPA candidate, out of window time frame Brain CT negative for hemorrhagic MRI head acute nonhemorrhagic lacunar infarcts right [place] radiata and left temporal cortex Carotid Doppler no significant stenosis Echo showed EF 55 to 60%, grade 1 mild diastolic dysfunction. NIHSS score is 5 lipid panel increased LDL and total rickey and A1c 9.3 in the morning Daily aspirin, Plavix for 21 days, high-dose atorvastatin Swallow screen Neuro checks Cardiac monitoring PT/OT/social work consultation awaiting acute rehab placement Patient educator DVT/GI prophylaxis (2) Paroxysmal SVT (supraventricular tachycardia) Is this a current diagnosis for this admission?: Yes Plan: - 3 episodes during admission, asymptomatic, given adenosine - BP 150/80s - EKG narrow complex tachycardia - Echo EF normal - Cardio on board - recommend metoprolol- started - outpatient cardio follow up (3) Multiple myeloma Qualifiers: Multiple myeloma remission status: in remission Qualified Code(s): C90.01 - Multiple myeloma in remission Is this a current diagnosis for this admission?: Yes Plan: Outpatient follow-up with hematology/oncology Dr. Rosario. - hold revelimid (4) Hypotension Is this a current diagnosis for this admission?: Yes Plan: -RESOLVED - transient. with associated tachycardia - received 1 dose of 25 mg Losartan - unclear cause tachycardia mediated or Vtach - continue tele monitor - Mg replaced (5) Diabetes Qualifiers: Diabetes mellitus type: type 2 Diabetes mellitus correction insulin use: without rat exterminator use Diabetes mellitus complication status: with ophthalmic complications Diabetes mellitus complication detail: with diabetic retinopathy Diabetic retinopathy severity: with unspecified retinopathy severity Diabetes mellitus macular edema: macular edema presence unspecified Laterality: left Qualified Code(s): E11.319 - Type 2 diabetes mellitus with unspecified diabetic retinopathy without macular edema Is this a current diagnosis for this admission?: Yes Plan: A1C 9.3 On oral anti-glycemic. Sliding scale insulin, Accu-Cheks, check hemoglobin A1c (6) Hypertension Qualifiers: Hypertension type: essential hypertension Qualified Code(s): I10 - Essential (primary) hypertension Is this a current diagnosis for this admission?: Yes Plan: - she was out of the permissive hypertension 48 hr window so she was started on losartan 25 daily - got 1 dsoe then had a hypotensive episode - started on amlodipine adn metoprolol (7) COPD (chronic obstructive pulmonary disease) Qualifiers: COPD type: unspecified COPD Qualified Code(s): J44.9 - Chronic obstructive pulmonary disease, unspecified Is this a current diagnosis for this admission?: Yes Plan: Albuterol as needed. Not in acute exacerbation. (8) Tobacco abuse Is this a current diagnosis for this admission?: Yes Plan: Counseled on smoking cessation. - Time Time Spent with patient: 35 or more minutes Anticipated Discharge Disposition: Home, Self Care Anticipated Discharge Timeframe: within 48 hours
--- NOTE | 2020-06-05 18:08 | PDOC PROGRESS REPORT ---
Subjective Progress Note for:: 06/05/20 Subjective:: SHARON DEAN is a 70 year old female with history of type 2 diabetes mellitus with retinopathy, multiple myeloma, hypertension, COPD, presents to the hospital for evaluation of left-sided weakness which began 2 days ago. It involve the leg and her arm. Since then, she has been having difficulty getting around to the point where she had a fall. Ambulation has been significantly impacted and her daughter urged her to come into the hospital today. She endorses numbness which is improving in her left arm. Denies any tingling sensation. Denies any slurred speech. Denies any dysphagia. Follows with Dr. Vyas regarding her multiple myeloma and is on Revlimid. Patient denies any prior history of stroke or TIAs. She denies any heart disease. 06/04/20 D2 hospital stay. She was seen and examined at bedside. Denies any new neurologic symptom but still has left sided weakness. No chest pain, no SOB. MRI head showed acute nonhemorrhagic lacunar infarcts right [place] radiata and left tenriism cortex. Started on aspirin Plavix and high-dose Lipitor. Carotid ultrasound did not show any significant narrowing, echo showed normal EF mild diastolic dysfunction. Patient had an episode of tachycardia and hypotension in the emergency room, resolved after a few minutes. Per RN in the ED tracing showing sinus tachycardia. 06/05/20 D3 Hospital stay. She was seen and examined at bedside. She was noted to have SVT episodes once in the ED and twice overnight terminated by adenosine 6 mg. Mostly asymptomatic. She denied any chest pain, SOB, palpitations, just feeling hot. Cardiology was consulted who recommended metoprolol. Acute rehab doctor consulted, requesting for a bubble study. PT/OT saw her recommend extensive rehab needs. Reason For Visit: ACUTE CVA Physical Exam Vital Signs: Temp Pulse Resp BP Pulse Ox 97.5 F 73 19 138/73 H 96 06/05/20 15:08 06/05/20 16:00 06/05/20 16:00 06/05/20 16:00 06/05/20 16:00 Intake & Output 06/04/20 06/05/20 06/06/20 06:59 06:59 06:59 Intake Total 3585 206 2333 Output Total 1000 Balance 1000 -380 1145 Weight 74.4 kg 76.4 kg General appearance: PRESENT: no acute distress, cooperative Head exam: PRESENT: atraumatic, normocephalic Eye exam: PRESENT: EOMI, PERRLA Mouth exam: PRESENT: moist Neck exam: PRESENT: full ROM Respiratory exam: PRESENT: clear to auscultation mary jo, symmetrical, unlabored Cardiovascular exam: PRESENT: RRR, +S1, +S2 Pulses: PRESENT: normal radial pulses GI/Abdominal exam: PRESENT: normal bowel sounds, soft. ABSENT: rebound, tenderness Extremities exam: ABSENT: +2 edema Musculoskeletal exam: PRESENT: other Neurological exam: PRESENT: alert, oriented to person, oriented to place, oriented to time, motor sensory deficit - left sided hemiparesis Psychiatric exam: PRESENT: normal mood Skin exam: PRESENT: normal color Results Laboratory Results: 06/05/20 06:28 06/05/20 06:28 06/04/20 06/05/20 06/05/20 20:31 06:28 06:28 WBC 6.2 RBC 4.52 Hgb 13.9 Hct 40.0 MCV 89 MCH 30.7 MCHC 34.7 RDW 13.3 Plt Count 176 Seg Neutrophils % 60.0 Sodium 137.4 Potassium 3.3 L Chloride 103 Carbon Dioxide 23 Anion Gap 11 BUN 7 Creatinine 0.65 Est GFR ( Amer) > 60 Est GFR (Non-Af Amer) Glucose 166 H Calcium 9.1 Magnesium 1.6 Total Bilirubin AST Alkaline Phosphatase Total Protein Albumin 06/05/20 06:28 WBC RBC Hgb Hct MCV MCH MCHC RDW Plt Count Seg Neutrophils % Sodium Cancelled Potassium Cancelled Chloride Cancelled Carbon Dioxide Cancelled Anion Gap Cancelled BUN Cancelled Creatinine Cancelled Est GFR ( Amer) Cancelled Est GFR (Non-Af Amer) Cancelled Glucose Cancelled Calcium Cancelled Magnesium Total Bilirubin 1.4 H AST 25 Alkaline Phosphatase 95 Total Protein 6.6 Albumin 3.7 06/03/20 20:15 Troponin I < 0.012 Impressions: Brain MRI with MRA 06/04/20 00:00 IMPRESSION: NORMAL MRA OF THE [place]. Head MRI 06/04/20 00:00 IMPRESSION: Acute, nonhemorrhagic lacunar infarcts right [place] radiata and left tenriism cortex. EVIDENCE OF ACUTE STROKE: YES. Bilateral MCA. Chest X-Ray 06/04/20 01:23 IMPRESSION: No acute process. No pneumonia or edema. Head CT 06/04/20 01:23 IMPRESSION: No acute intracranial findings. Carotid Doppler Study 06/04/20 04:15 IMPRESSION: No hemodynamically significant stenosis in either ICA. There is narrowing of the left external carotid artery. Assessment and Plan - Diagnosis (1) Acute CVA (cerebrovascular accident) Is this a current diagnosis for this admission?: Yes Plan: Suspected acute CVA which likely occurred 2 days ago at the time when patient started experiencing left-sided weakness. Not a tPA candidate, out of window time frame Brain CT negative for hemorrhagic MRI head acute nonhemorrhagic lacunar infarcts right [place] radiata and left temporal cortex Carotid Doppler no significant stenosis Echo showed EF 55 to 60%, grade 1 mild diastolic dysfunction. NIHSS score is 5 lipid panel increased LDL and total rickey and A1c 9.3 in the morning Daily aspirin, Plavix for 21 days, high-dose atorvastatin Neuro checks Cardiac monitoring PT/OT/ would go to acute rehab Patient educator DVT/GI prophylaxis (2) Paroxysmal SVT (supraventricular tachycardia) Is this a current diagnosis for this admission?: Yes Plan: - 3 episodes during admission, asymptomatic, given adenosine - BP 150/80s - EKG narrow complex tachycardia - Echo EF normal - Cardio on board - recommend metoprolol- started - outpatient cardio follow up (3) Multiple myeloma Qualifiers: Multiple myeloma remission status: in remission Qualified Code(s): C90.01 - Multiple myeloma in remission Is this a current diagnosis for this admission?: Yes Plan: Outpatient follow-up with hematology/oncology Dr. Rosario. - hold revelimid (4) Hypotension Is this a current diagnosis for this admission?: Yes Plan: -RESOLVED - transient. with associated tachycardia - received 1 dose of 25 mg Losartan - unclear cause tachycardia mediated or Vtach - continue tele monitor - Mg replaced (5) Diabetes Qualifiers: Diabetes mellitus type: type 2 Diabetes mellitus exterminator helper termite insulin use: without exterminator helper termite use Diabetes mellitus complication status: with ophthalmic complications Diabetes mellitus complication detail: with diabetic retinopathy Diabetic retinopathy severity: with unspecified retinopathy severity Diabetes mellitus macular edema: macular edema presence unspecified Laterality: left Qualified Code(s): E11.319 - Type 2 diabetes mellitus with unspecified diabetic retinopathy without macular edema Is this a current diagnosis for this admission?: Yes Plan: A1C 9.3 On oral anti-glycemic. Sliding scale insulin, Accu-Cheks, check hemoglobin A1c (6) Hypertension Qualifiers: Hypertension type: essential hypertension Qualified Code(s): I10 - Essential (primary) hypertension Is this a current diagnosis for this admission?: Yes Plan: - she was out of the permissive hypertension 48 hr window so she was started on losartan 25 daily - got 1 dsoe then had a hypotensive episode - started on amlodipine adn metoprolol (7) COPD (chronic obstructive pulmonary disease) Qualifiers: COPD type: unspecified COPD Qualified Code(s): J44.9 - Chronic obstructive pulmonary disease, unspecified Is this a current diagnosis for this admission?: Yes Plan: Albuterol as needed. Not in acute exacerbation. (8) Tobacco abuse Is this a current diagnosis for this admission?: Yes Plan: Counseled on smoking cessation. - Time Time Spent with patient: 35 or more minutes Anticipated Discharge Disposition: Snf Facility Anticipated Discharge Timeframe: within 48 hours
[2020-06-05] MEDS: ATORVASTATIN CALCIUM 80 MG TABLET PO SCH (21:32)
[2020-06-05] MEDS: METOPROLOL SUCCINATE 25 MG TAB.SR.24H PO SCH (21:33)
--- NOTE | 2020-06-05 22:10 | EKG REPORT ---
SEVERITY:- NORMAL ECG - SINUS RHYTHM : Confirmed by: Jeaneth Whelan 05-Jun-2020 22:10:05
--- NOTE | 2020-06-06 08:28 | PDOC TRANSFER SUMMARY ---
General Admission Date/PCP: 06/04/20 03:49 Admission Date: 06/04/20 Transfer Date: 06/06/20 Accepting Facility: Other (Comments) Resuscitation Status: Full Code - Transfer Diagnosis (1) Acute CVA (cerebrovascular accident) Is this a current diagnosis for this admission?: Yes Diagnosis Summary: acute CVA which likely occurred 2 days ago at the time when patient started experiencing left-sided weakness. Not a tPA candidate, out of window time frame Brain CT negative for hemorrhagic MRI head acute nonhemorrhagic lacunar infarcts right [place] radiata and left temporal cortex Carotid Doppler no significant stenosis Echo showed EF 55 to 60%, grade 1 mild diastolic dysfunction. NIHSS score is 5 lipid panel increased LDL and total rickey and A1c 9.3 Daily aspirin, Plavix for 21 days, high-dose atorvastatin Neuro checks Cardiac monitoring PT/OT/ would go to acute rehab Patient educator (2) Paroxysmal SVT (supraventricular tachycardia) Is this a current diagnosis for this admission?: Yes Diagnosis Summary: - 3 episodes during admission, asymptomatic, given adenosine - BP 150/80s - EKG narrow complex tachycardia - Echo EF normal - Cardio on board - recommend metoprolol- started - outpatient cardio follow up (3) Multiple myeloma Is this a current diagnosis for this admission?: Yes Diagnosis Summary: Outpatient follow-up with hematology/oncology Dr. Rosario. - hold revelimid (4) Diabetes Is this a current diagnosis for this admission?: Yes (5) Hypertension Is this a current diagnosis for this admission?: Yes Diagnosis Summary: - on amlodipine and metoprolol (6) COPD (chronic obstructive pulmonary disease) Is this a current diagnosis for this admission?: Yes (7) Tobacco abuse Is this a current diagnosis for this admission?: Yes - Transfer Medications Home Medications: Albuterol Sulfate [Albuterol Sulfate Hfa] 1 puff IH Q6HP PRN 06/04/20 Aspirin [Ecotrin 81 mg EC Tablet] 81 mg PO DAILY 06/04/20 Lenalidomide [Revlimid] 10 mg PO DAILY 06/04/20 Transfer Medications: Current Medications Acetaminophen (Tylenol 325 Mg Tablet) 650 mg PO Q4HP PRN PRN Reason: FOR PAIN OR TEMP Stop: 07/04/20 04:14 Albuterol (Ventolin 0.083% Neb 2.5 Mg/3 Ml Ampul) 2.5 mg NEB RTQ6HP PRN PRN Reason: SHORTNESS OF BREATH Stop: 07/04/20 04:23 Last Admin: 06/05/20 20:49 Dose: 2.5 mg Documented by: Albuterol/Ipratropium (Duoneb 3 Ml Ampul) 3 ml NEB RTQ4HP PRN PRN Reason: SHORTNESS OF BREATH Stop: 07/05/20 09:17 Amlodipine Besylate (Norvasc 5 Mg Tablet) 5 mg PO DAILY [facility] Stop: 07/05/20 09:59 Last Admin: 06/05/20 09:10 Dose: 5 mg Documented by: Aspirin (Ecotrin 81 Mg Ec Tablet) 81 mg PO DAILY [facility] Stop: 07/04/20 09:59 Last Admin: 06/05/20 09:10 Dose: 81 mg Documented by: Atorvastatin Calcium (Lipitor 80 Mg Tablet) 80 mg PO QHS [facility] Stop: 07/04/20 21:59 Last Admin: 06/05/20 21:32 Dose: 80 mg Documented by: Clopidogrel Bisulfate (Plavix 75 Mg Tablet) 75 mg PO DAILY [facility] Stop: 07/04/20 09:59 Last Admin: 06/05/20 09:10 Dose: 75 mg Documented by: Dextrose (Dextrose Inj 50% Syringe (25 Gm/50 Ml)) 12.5 gm IV PRN PRN; Protocol PRN Reason: FOR BG 50-69 IN ALERT PATIENT Stop: 07/04/20 04:17 Dextrose (Dextrose Inj 50% Syringe (25 Gm/50 Ml)) 25 gm IV PRN PRN; Protocol PRN Reason: PER PROTOCOL Stop: 07/04/20 04:17 Docusate Sodium (Colace 100 Mg Capsule) 100 mg PO DAILY [facility] Stop: 07/04/20 09:59 Last Admin: 06/05/20 09:10 Dose: 100 mg Documented by: Enoxaparin Sodium (Lovenox Inj 40 Mg/0.4 Ml Disp.Syrin) 40 mg SUBCUT DAILY [facility] Stop: 07/04/20 09:59 Last Admin: 06/05/20 09:10 Dose: 40 mg Documented by: Famotidine (Pepcid 20 Mg Tablet) 20 mg PO Q12 [facility] Stop: 07/04/20 09:59 Last Admin: 06/05/20 21:33 Dose: 20 mg Documented by: Glucagon (Glucagen Inj 1 Mg Vial) 1 mg IM PRN PRN; Protocol PRN Reason: Evaluate for BG < 70 Stop: 07/04/20 04:17 Glucose (Glutose 40% Gel 15 Gm Tube) 15 gm PO PRN PRN; Protocol PRN Reason: FOR BG 50-69 IN ALERT PATIENT Stop: 07/04/20 04:17 Glucose (Glutose 40% Gel 15 Gm Tube) 30 gm PO PRN PRN; Protocol PRN Reason: FOR BG < 50 IN ALERT PATIENT Stop: 07/04/20 04:17 Insulin Human Lispro (Humalog Insulin 100 Unit/1 Ml 3 Ml Vial) 0 - 12 unit SUBCUT ACHS [facility]; Protocol Stop: 07/04/20 07:59 Last Admin: 06/05/20 21:32 Dose: 6 unit Documented by: Metoprolol Succinate (Toprol Xl 25 Mg Tab.Sr) 25 mg PO Q12 [facility] Stop: 07/05/20 21:59 Last Admin: 06/05/20 21:33 Dose: 25 mg Documented by: Nicotine (Nicoderm 14 Mg/24 Hr Transdermal Patch) 1 each TD DAILYP PRN PRN Reason: WITHDRAWAL SYMPTOMS Stop: 07/04/20 04:23 Ondansetron HCl (Zofran Inj/Pf 4 Mg/2 Ml Sdv) 4 mg IV Q6HP PRN PRN Reason: FOR NAUSEA/VOMITING Stop: 07/04/20 04:14 Sodium Chloride (Saline Flush 2.5 Ml Monoject Prefil Syrin) 2.5 ml IV Q8 [facility] Stop: 07/04/20 05:59 Last Admin: 06/06/20 06:20 Dose: 2.5 ml Documented by: - Allergies Allergies/Adverse Reactions: No Known Allergies Allergy (Verified 06/03/20 19:40) Hospital Course Hospital Course: SHARON DEAN is a 70 year old female with history of type 2 diabetes mellitus with retinopathy, multiple myeloma, hypertension, COPD, presents to the hospital for evaluation of left-sided weakness which began 2 days ago. It involve the leg and her arm. Since then, she has been having difficulty getting around to the point where she had a fall. Ambulation has been significantly impacted and her daughter urged her to come into the hospital today. She endorses numbness which is improving in her left arm. Denies any tingling sensation. Denies any slurred speech. Denies any dysphagia. Follows with Dr. Vyas regarding her multiple myeloma and is on Revlimid. Patient denies any prior history of stroke or TIAs. She denies any heart disease. 06/04/20 D2 hospital stay. She was seen and examined at bedside. Denies any new neurologic symptom but still has left sided weakness. No chest pain, no SOB. MRI head showed acute nonhemorrhagic lacunar infarcts right [place] radiata and left episcopal cortex. Started on aspirin Plavix and high-dose Lipitor. Carotid ultrasound did not show any significant narrowing, echo showed normal EF mild diastolic dysfunction. Patient had an episode of tachycardia and hypotension in the emergency room, resolved after a few minutes. Per RN in the ED tracing showing sinus tachycardia. 06/05/20 D3 Hospital stay. She was seen and examined at bedside. She was noted to have SVT episodes once in the ED and twice overnight terminated by adenosine 6 mg. Mostly asymptomatic. She denied any chest pain, SOB, palpitations, just feeling hot. Cardiology was consulted who recommended metoprolol. Acute rehab doctor consulted, requesting for a bubble study. PT/OT saw her recommend extensive rehab needs. 06/06/20. Transfer to acute rehab Physical Exam Vital Signs: Temp Pulse Resp BP Pulse Ox 97.6 F 76 20 142/84 H 93 06/06/20 03:09 06/06/20 07:00 06/06/20 04:00 06/06/20 04:00 06/06/20 04:00 Intake & Output 06/05/20 06/06/20 06/07/20 06:59 06:59 06:59 Intake Total 620 1370 Output Total 1000 800 Balance -380 570 Weight 76.4 kg 78.8 kg General appearance: PRESENT: no acute distress, cooperative Head exam: PRESENT: atraumatic, normocephalic Eye exam: PRESENT: EOMI, PERRLA Mouth exam: PRESENT: moist Neck exam: PRESENT: full ROM Respiratory exam: PRESENT: clear to auscultation mary jo, symmetrical, unlabored Cardiovascular exam: PRESENT: RRR, +S1, +S2 GI/Abdominal exam: PRESENT: normal bowel sounds, soft. ABSENT: rebound, tenderness Musculoskeletal exam: PRESENT: other - left sided weakness Neurological exam: PRESENT: alert, awake, oriented to person, oriented to place, oriented to time, oriented to situation Psychiatric exam: PRESENT: normal mood Skin exam: PRESENT: normal color Results Laboratory Results: 06/05/20 06:28 06/05/20 06:28 06/05/20 06/05/20 06:28 06:28 WBC 6.2 RBC 4.52 Hgb 13.9 Hct 40.0 MCV 89 MCH 30.7 MCHC 34.7 RDW 13.3 Plt Count 176 Seg Neutrophils % 60.0 Sodium Cancelled Potassium Cancelled Chloride Cancelled Carbon Dioxide Cancelled Anion Gap Cancelled BUN Cancelled Creatinine Cancelled Est GFR ( Amer) Cancelled Est GFR (Non-Af Amer) Cancelled Glucose Cancelled Calcium Cancelled Total Bilirubin 1.4 H AST 25 Alkaline Phosphatase 95 Total Protein 6.6 Albumin 3.7 06/03/20 20:15 Troponin I < 0.012 Impressions: Brain MRI with MRA 06/04/20 00:00 IMPRESSION: NORMAL MRA OF [facility] [place] [facility] [place]. Head MRI 06/04/20 00:00 IMPRESSION: Acute, nonhemorrhagic lacunar infarcts right [place] radiata and left episcopal cortex. EVIDENCE OF ACUTE STROKE: YES. Bilateral MCA. Chest X-Ray 06/04/20 01:23 IMPRESSION: No acute process. No pneumonia or edema. Head CT 06/04/20 01:23 IMPRESSION: No acute intracranial findings. Carotid Doppler Study 06/04/20 04:15 IMPRESSION: No hemodynamically significant stenosis in either ICA. There is narrowing of the left external carotid artery. Plan Discharge Plan: Transfer to acute Rehab. She would need an outpatient cardiology follow up for SVT episodes. Plavix should be stopped 21 days after. Time Spent: Less than 30 Minutes
--- NOTE | 2020-06-06 08:31 | PDOC PROGRESS REPORT ---
Subjective Progress Note for:: 06/06/20 Subjective:: Patient seems to be getting better. Being worked up for acute rehab. Reason For Visit: ACUTE CVA Physical Exam Vital Signs: Temp Pulse Resp BP Pulse Ox 97.6 F 76 20 142/84 H 93 06/06/20 03:09 06/06/20 07:00 06/06/20 04:00 06/06/20 04:00 06/06/20 04:00 Intake & Output 06/05/20 06/06/20 06/07/20 06:59 06:59 06:59 Intake Total 620 1370 Output Total 1000 800 Balance -380 570 Weight 76.4 kg 78.8 kg General appearance: PRESENT: no acute distress, well-developed, well-nourished Head exam: PRESENT: atraumatic, normocephalic Eye exam: PRESENT: conjunctiva pink, EOMI, PERRLA. ABSENT: scleral icterus Ear exam: PRESENT: normal external ear exam Mouth exam: PRESENT: moist, tongue midline Neck exam: ABSENT: carotid bruit, JVD, lymphadenopathy, thyromegaly Respiratory exam: PRESENT: clear to auscultation mary jo. ABSENT: rales, rhonchi, wheezes Cardiovascular exam: PRESENT: RRR. ABSENT: diastolic murmur, rubs, systolic murmur Pulses: PRESENT: normal dorsalis pedis pul Vascular exam: PRESENT: normal capillary refill GI/Abdominal exam: PRESENT: normal bowel sounds, soft. ABSENT: distended, guarding, mass, organolmegaly, rebound, tenderness Rectal exam: PRESENT: deferred Extremities exam: PRESENT: full ROM. ABSENT: calf tenderness, clubbing, pedal edema Neurological exam: PRESENT: alert, awake, oriented to person, oriented to place, oriented to time, oriented to situation, CN II-XII grossly intact. ABSENT: motor sensory deficit Psychiatric exam: PRESENT: appropriate affect, normal mood. ABSENT: homicidal ideation, suicidal ideation Skin exam: PRESENT: dry, intact, warm. ABSENT: cyanosis, rash Results Laboratory Results: 06/05/20 06:28 06/05/20 06:28 06/05/20 06/05/20 06:28 06:28 WBC 6.2 RBC 4.52 Hgb 13.9 Hct 40.0 MCV 89 MCH 30.7 MCHC 34.7 RDW 13.3 Plt Count 176 Seg Neutrophils % 60.0 Sodium Cancelled Potassium Cancelled Chloride Cancelled Carbon Dioxide Cancelled Anion Gap Cancelled BUN Cancelled Creatinine Cancelled Est GFR ( Amer) Cancelled Est GFR (Non-Af Amer) Cancelled Glucose Cancelled Calcium Cancelled Total Bilirubin 1.4 H AST 25 Alkaline Phosphatase 95 Total Protein 6.6 Albumin 3.7 06/03/20 20:15 Troponin I < 0.012 Impressions: Brain MRI with MRA 06/04/20 00:00 IMPRESSION: NORMAL MRA OF [place]. Head MRI 06/04/20 00:00 IMPRESSION: Acute, nonhemorrhagic lacunar infarcts right [place] radiata and left anabaptism cortex. EVIDENCE OF ACUTE STROKE: YES. Bilateral MCA. Chest X-Ray 06/04/20 01:23 IMPRESSION: No acute process. No pneumonia or edema. Head CT 06/04/20 01:23 IMPRESSION: No acute intracranial findings. Carotid Doppler Study 06/04/20 04:15 IMPRESSION: No hemodynamically significant stenosis in either ICA. There is narrowing of the left external carotid artery. Assessment & Plan - Diagnosis (1) Acute CVA (cerebrovascular accident) Is this a current diagnosis for this admission?: Yes Plan: As noted previously, agree with acute rehab. Hold Revlimid through rehab stay. (2) Multiple myeloma Qualifiers: Multiple myeloma remission status: in remission Qualified Code(s): C90.01 - Multiple myeloma in remission Is this a current diagnosis for this admission?: Yes Plan: Has remained in a complete response per labs 1 month ago. Hold Revlimid on discharge until patient is discharged from acute rehab. - Time Time Spent with patient: 35 or more minutes
[2020-06-06] MEDS: INSULIN LISPRO 100 UNIT/ML 3 ML VIAL SUBCUT SCH (09:07)
[2020-06-06] MEDS: ASPIRIN 81 MG TABLET, ENT COATED PO SCH (09:08)
[2020-06-06] MEDS: DOCUSATE SODIUM 100 MG CAPSULE PO SCH (09:08)
[2020-06-06] MEDS: CLOPIDOGREL BISULFATE 75 MG TABLET PO SCH (09:08)
[2020-06-06] MEDS: METOPROLOL SUCCINATE 25 MG TAB.SR.24H PO SCH (09:08)
[2020-06-06] MEDS: FAMOTIDINE 20 MG TABLET PO SCH (09:08)
[2020-06-06] MEDS: ENOXAPARIN SODIUM INJ 40 MG/0.4 ML DISP.SYRIN SUBCUT SCH (09:09)
[2020-06-06] MEDS: AMLODIPINE BESYLATE 5 MG TABLET PO SCH (09:09)
[2020-06-06 10:33] VITALS: BP 157/115
== END 2020-06-06 10:59 | disposition short-term general hospital (02) | DRG 65 ==
LOC: ER 18:47 → EH 06-04 03:49 → 3W 06-04 20:58
PROVIDERS: ADMIT Internal Medicine; ATTEND Internal Medicine
DX: I63.512 Cerebral infarction due to unspecified occlusion or stenosis of left middle cerebral artery (principal); G81.94 Hemiplegia, unspecified affecting left nondominant side; C90.01 Multiple myeloma in remission; I47.1 Supraventricular tachycardia; R29.705 NIHSS score 5; R53.1 Weakness; E86.0 Dehydration; I10 Essential (primary) hypertension; E78.00 Pure hypercholesterolemia, unspecified; E11.319 Type 2 diabetes mellitus with unspecified diabetic retinopathy without macular edema; H54.62 Unqualified visual loss, left eye, normal vision right eye; J44.9 Chronic obstructive pulmonary disease, unspecified; F17.210 Nicotine dependence, cigarettes, uncomplicated; Z79.84 Long term (current) use of oral hypoglycemic drugs; Z79.82 Long term (current) use of aspirin; Z79.51 Long term (current) use of inhaled steroids; Z79.899 Other long term (current) drug therapy
CPT/HCPCS: 36415; 70450; 70544; 70551; 71045; 80048; 80053; 80061; 80076; 81001; 82962; 83036; 83735; 84484; 85025; 85610; 85730; 87635; 93005; 93010; 93306; 93880; 94640; 96360; 99285; C9803; J0153; J1650; J1815; J3475; J3490; J7030; J7040; J7613